=== PATIENT | female | born 1990 | race African-American/Black ===

== ENCOUNTER 2016-08-27 11:10 | Emergency (ER) | payer MEDICAID, OTHER ==
[~2016-08-27] VITALS: Ht 162.6 cm; Wt 120.0 kg
[~2016-08-27 11:10] MED LIST: CHLO.12%30 SSP; CIPR0.3S2 RIGHT EYE; IBUP800T23 PO; PENI500T PO
[2016-08-27 11:13] VITALS: BP 150/87; PULSE 84; RESP 12; TEMP 98.7; O2SAT 98
--- NOTE | 2016-08-27 13:17 | PD ---
HPI Chief Complaint: Cardiac Complaint Time Seen by Provider: 13:11 Travel History International Travel<30 days: No Contact w/Intl Traveler<30days: No Traveled to known affect area: No History of Present Illness HPI 26-year-old female presents to the emergency department for evaluation of intermittent palpitations, chest pain. Patient states that 2 Weeks ago, she had an episode. She felt like her heart was racing and she had chest pain. She states she felt anxious, She Went outside. She States the Symptoms Resolved on Their Own. She States It Also Occurred 3 Days Ago. Patient Denies Any Chest Pain or Palpitations at This Time. She Does Complain of Left Neck Pain. She States She Had the Same Pain Back When She Was . Patient Denies Any Neurological Complaints. Patient has no chronic medical problems and takes no medications. She denies any recent surgeries or travel. Patient denies any hemoptysis. She is not currently on control pills. She denies any history of blood clots. PFSH Past Medical History Hx Anticoagulant Therapy: No Cardiovascular Problems: No Chemotherapy: No Cerebrovascular Accident: No Diabetes: No Diminished Hearing: No Respiratory: No Immunizations Current: Yes ?: Not : 2 Para: 2 Past Surgical History Section: Yes (X2) Gynecologic Surgery: Yes () Hysterectomy: No Social History Alcohol Use: No Tobacco Use: No Substance Use: No Allergies-Medications (Allergen,Severity, Reaction): Coded Allergies: No Known Allergies (Verified , 07/05/16) Reported Meds & Prescriptions Reported Meds & Active Scripts Active No Active Prescriptions or Reported Medications Review of Systems Except as stated in HPI: all other systems reviewed are Neg Physical Exam Narrative GENERAL: Well-developed well-nourished female patient, ambulatory and in no acute distress. Afebrile. SKIN: Warm and dry. HEAD: Normocephalic. Atraumatic. ENT: Mucosa pink and moist. No erythema or exudates. No uvular edema. No uvular , palatal, or tonsillar deviation. Airway patent. Nasal turbinates appear normal without nasal blood, purulent drainage or septal hematoma. Bilateral tympanic membranes are clear without erythema or perforation. EYES: No scleral icterus. No injection or drainage. NECK: Supple, trachea midline. No JVD or lymphadenopathy. CARDIOVASCULAR: Regular rate and rhythm without murmurs, gallops, or rubs. RESPIRATORY: Breath sounds equal bilaterally. No accessory muscle use. Lungs sounds are clear to auscultation. GASTROINTESTINAL: Abdomen soft, non-tender, nondistended. MUSCULOSKELETAL: No cyanosis, or edema. Bilateral upper and lower extremity strength 5/5. All extremities are neurovascularly intact. The patient has tenderness over left trapezius muscle. BACK: Nontender without obvious deformity. No CVA tenderness. NEUROLOGICAL: Awake and alert. Cranial nerves II through XII intact. Motor and sensory grossly within normal limits. Five out of 5 muscle strength in all muscle groups. Normal speech. Data Data Last Documented VS Vital Signs Date Time Temp Pulse Resp B/P Pulse Ox O2 Delivery O2 Flow Rate FiO2 08/27/16 11:13 98.7 84 12 150/87 98 Room Air Orders Electrocardiogram (08/27/16 ) Chest, Single Ap (08/27/16 ) Ed Urine Pregnancytest Poc (08/27/16 13:09) [facility] Medical Decision Making Medical Screen Exam Complete: Yes Emergency Medical Condition: Yes Medical Record Reviewed: Yes Interpretation(s) chest x-ray - CONCLUSION: 1. No acute findings. No focal consolidation or effusion. Differential Diagnosis Anxiety versus chest wall pain versus pneumothorax versus pneumonia versus unlikely ACS versus Narrative Course 26-year-old female presents to the emergency department for evaluations of intermittent palpitations and chest pain. She has none at this time. Symptoms are consistent with anxiety. Urine test, chest x-ray, EKG are ordered and pending. Urine test is negative. Chest x-ray shows no acute findings. EKG shows SR, HR 72, no acute ST changes. Symptoms and physical are consistent with anxiety. Patient is instructed to follow up with her primary care physician for possible holter monitor. She is to return for any acute, worsening of symptoms. Diagnosis Primary Impression: Anxiety Additional Impression: Palpitations Referrals: Primary Care Physician call for appointment Patient Instructions: Anxiety (ED), General Instructions Additional Instructions: Follow up with your primary care physician. Return to the emergency department for any acute, worsening of symptoms. Med/Other Pt SpecificInfo: No Change to Meds Scripts No Active Prescriptions or Reported Meds Disposition: 01 DISCHARGE HOME Condition: Stable Lara Garcia Aug 27, 2016 13:17
--- NOTE | 2016-08-27 14:56 | RADRPT ---
EXAM DATE/TIME: 08/27/2016 13:06 [facility] COMPARISON: No previous studies available for comparison. INDICATIONS : Patient states feels irregular heart beat, headache, feels like she's going to pass out and short of breath. MEDICAL HISTORY : None. SURGICAL HISTORY : None. ENCOUNTER: Initial ACUITY: 3 weeks PAIN SCORE: 0/10 LOCATION: Bilateral chest FINDINGS: A single view of the chest demonstrates the lungs to be symmetrically aerated without evidence of mas s, infiltrate or effusion. The cardiomediastinal contours are unremarkable. Osseous structures are intact. CONCLUSION: 1. No acute findings. No focal consolidation or effusion. Kirk Gunn MD on August 27, 2016 at 14:53 Board Certified Radiologist. This report was verified electronically.
[2016-08-27] MEDS ORDERED: IBUPROFEN 600 MG TAB PO ONE (15:45)
[2016-08-27] MEDS ORDERED: METHOCARBAMOL 500 MG TAB PO ONE (15:45)
--- NOTE | 2016-08-28 11:57 | EKG ---
Date Performed: 08/27/2016 Time Performed: 13:59:02 PTAGE: 26 years EKG: Sinus rhythm NORMAL ECG PREVIOUS TRACING : 01/13/2016 22.11 DOCTOR: Isael Shipley Interpretating Date/Time 08/28/2016 11:55:48
== END 2016-08-27 16:03 | disposition home or self-care (01) ==
LOC: NEPC 11:10
DX: F41.9 Anxiety disorder, unspecified (principal); R00.2 Palpitations
CPT/HCPCS: 71010; 84703; 93005

== ENCOUNTER 2016-09-01 21:20 | Emergency (ER) | payer MEDICAID, OTHER ==
[~2016-09-01] VITALS: Ht 162.6 cm; Wt 118.0 kg
[2016-09-01 21:23] VITALS: BP 155/76; PULSE 70; RESP 16; TEMP 98.3; O2SAT 99
[2016-09-01] MEDS ORDERED: SODIUM CHLOR 0.9% 1000 ML INJ 1,000 ML IV ONE (21:39)
[2016-09-01] MEDS ORDERED: diphenhydrAMINE HCL 50 MG/ML VIAL IVP ONE (21:45)
[2016-09-01] MEDS ORDERED: METOCLOPRAMIDE HCL 10 MG/2 ML VIAL IVP ONE (21:45)
[2016-09-01] MEDS ORDERED: KETOROLAC TROMETHAMINE 30 MG/ML (IVP) VIAL IVP ONE (21:45)
--- NOTE | 2016-09-01 21:45 | PD ---
HPI Chief Complaint: Headache Time Seen by Provider: 21:34 Travel History International Travel<30 days: No Contact w/Intl Traveler<30days: No Traveled to known affect area: No History of Present Illness HPI This is a 26-year-old female with no significant past medical history. She presents for evaluation of a headache. She reports over the past 2 weeks she has had a left frontal headache. She describes it as a pressure and she rates the discomfort as a 6 out of 10. There was no thunderclap pain at onset. He has tried using [id number] NSAIDs but pain persisted which prompted evaluation. She denies blurred vision, visual aura, nausea or vomiting, confusion, focal numbness or tingling or weakness, slurred speech. She denies cough, congestion, rash, sore throat, fevers or chills. It appears that the patient was seen here in August 27 for evaluation of chest pain/palpitations and at that time she had a normal EKG, chest x-ray and a negative urine test. She has no other complaints at this time. PFSH Past Medical History Hx Anticoagulant Therapy: No Cardiovascular Problems: No Chemotherapy: No Cerebrovascular Accident: No Diabetes: No Diminished Hearing: No Respiratory: No Immunizations Current: Yes ?: Not LMP: 07/30/16 : 2 Para: 2 Past Surgical History Section: Yes (X2) Gynecologic Surgery: Yes (C-SEC X 2) Hysterectomy: No Social History Alcohol Use: Yes (WINE- SOCIALLY) Tobacco Use: No Substance Use: No Allergies-Medications (Allergen,Severity, Reaction): Coded Allergies: No Known Allergies (Verified , 09/01/16) Reported Meds & Prescriptions Reported Meds & Active Scripts Active No Active Prescriptions or Reported Medications Review of Systems Except as stated in HPI: all other systems reviewed are Neg Physical Exam Narrative GENERAL: Well-developed well-nourished female in no acute distress SKIN: Warm and dry. HEAD: Atraumatic. Normocephalic. EYES: Pupils equal and round reactive to light extraocular muscles are intact. No scleral icterus. No injection or drainage. ENT: No nasal bleeding or discharge. Mucous membranes pink and moist. There is some tenderness to palpation to the left forehead. There is no rash. NECK: Trachea midline. No JVD. No lymphadenopathy. Neck supple with full range of motion. CARDIOVASCULAR: Regular rate and rhythm. No murmur appreciated. RESPIRATORY: No accessory muscle use. Clear to auscultation. Breath sounds equal bilaterally. MUSCULOSKELETAL: No obvious deformities. No clubbing. No cyanosis. No edema. NEUROLOGICAL: Awake and alert. No obvious cranial nerve deficits. Motor grossly within normal limits. Normal speech. Normal gait, normal finger to nose , heel to arredondo. He has 15. Data Data Last Documented VS Vital Signs Date Time Temp Pulse Resp B/P Pulse Ox O2 Delivery O2 Flow Rate FiO2 09/01/16 22:42 16 09/01/16 21:23 98.3 70 155/76 99 Orders Complete Blood Count With Diff (09/01/16 21:39) Basic Metabolic Panel (Bmp) (09/01/16 21:39) Iv Access Insert/Monitor (09/01/16 21:39) Ketorolac Inj (Toradol Inj) (09/01/16 21:45) Diphenhydramine Inj (Benadryl Inj) (09/01/16 21:45) Metoclopramide Inj (Reglan Inj) (09/01/16 21:45) Sodium Chlor 0.9% 1000 Ml Inj (Ns 1000 M (09/01/16 21:39) Labs Laboratory Tests Test 09/01/16 22:00 White Blood Count 8.8 TH/MM3 Red Blood Count 4.15 MIL/MM3 Hemoglobin 11.9 GM/DL Hematocrit 35.8 % Mean Corpuscular Volume 86.3 FL Mean Corpuscular Hemoglobin 28.7 PG Mean Corpuscular Hemoglobin 33.3 % Concent Red Cell Distribution Width 13.7 % Platelet Count 371 TH/MM3 Mean Platelet Volume 8.4 FL Neutrophils (%) (Auto) 48.9 % Lymphocytes (%) (Auto) 42.4 % Monocytes (%) (Auto) 7.2 % Eosinophils (%) (Auto) 0.7 % Basophils (%) (Auto) 0.8 % Neutrophils # (Auto) 4.3 TH/MM3 Lymphocytes # (Auto) 3.7 TH/MM3 Monocytes # (Auto) 0.6 TH/MM3 Eosinophils # (Auto) 0.1 TH/MM3 Basophils # (Auto) 0.1 TH/MM3 CBC Comment DIFF FINAL Differential Comment Sodium Level 141 MEQ/L Potassium Level 4.3 MEQ/L Chloride Level 106 MEQ/L Carbon Dioxide Level 27.4 MEQ/L Anion Gap 8 MEQ/L Blood Urea Nitrogen 11 MG/DL Creatinine 0.77 MG/DL Estimat Glomerular Filtration 109 ML/MIN Rate Random Glucose 92 MG/DL Calcium Level 9.0 MG/DL MDM Medical Decision Making Medical Screen Exam Complete: Yes Emergency Medical Condition: Yes Medical Record Reviewed: Yes Interpretation(s) CBC, BMP unremarkable Differential Diagnosis Trigeminal Neuralgia, shingles, pseudotumor cerebri, intracranial mass, intracranial hemorrhage, migraine, cluster headache, tension headache, anxiety, dehydration Narrative Course This is a 26-year-old female who has been having a 6 out of 10 left-sided headache which she describes as a pressure, unrelieved with the use of over-the- counter NSAIDs. On examination she does have some actual tenderness to palpation to the left forehead. There is no rash to suggest shingles. She has a normal neurologic examination and she denies any other neurologic symptoms besides headache. Therefore I don't suspect pseudotumor cerebri, intracranial mass or hemorrhage. I suspect a primary headache disorder such as tension headache, migraine without aura. We will treat her with IV fluids, Toradol, Reglan and Benadryl. CBC and BMP have been ordered. 2224: Reassessed, feeling improved, currently eating crackers. 2323: Upon recheck the patient's headache is resolved, her lab work is unremarkable and she is stable for discharge. Diagnosis Primary Impression: Cephalgia Qualified Code: R51 - Nonintractable headache, unspecified chronicity pattern , unspecified headache type Additional Instructions: Follow-up closely with primary care physician. Return for any emergent medical conditions. Med/Other Pt SpecificInfo: No Change to Meds Scripts No Active Prescriptions or Reported Meds Disposition: DISCHARGE HOME Condition: Stable Gavino Blair Sep 01, 2016 21:45
[2016-09-01 22:17] LABS: AUTOMATED NEUTROPHIL # 4.3 TH/MM3 (1.8-7.7); BASOPHIL # 0.1 TH/MM3 (0-0.2); BASOPHIL % 0.8 % (0.0-2.0); EOSINOPHIL # 0.1 TH/MM3 (0-0.4); EOSINOPHIL % 0.7 % (0.0-4.0); HEMATOCRIT 35.8 % (35.0-46.0); HEMO FLAGS DIFF FINAL; LYMPH % 42.4 % (9.0-44.0); LYMPHOCYTE # 3.7 TH/MM3 (1.0-4.8); MEAN CELL VOLUME 86.3 FL (80.0-100.0); MEAN CORPUSCULAR HEMOGLOBIN 28.7 PG (27.0-34.0); MEAN CORPUSCULAR HGB CONC 33.3 % (32.0-36.0); MONO % 7.2 % (0.0-8.0); NEUT % 48.9 % (16.0-70.0); PLATELET COUNT 371 TH/MM3 (150-450); RED BLOOD COUNT 4.15 MIL/MM3 (4.00-5.30); RED CELL DISTRIBUTION WIDTH 13.7 % (11.6-17.2); WHITE BLOOD COUNT 8.8 TH/MM3 (4.0-11.0)
[2016-09-01 22:42] VITALS: RESP 16
[2016-09-01 23:05] LABS: BICARBONATE 27.4 MEQ/L (21.0-32.0); POTASSIUM 4.3 MEQ/L (3.5-5.1)
[2016-09-03] MEDS ORDERED: NAPR500 PO (15:07)
== END 2016-09-02 00:04 | disposition home or self-care (01) ==
LOC: NEPB 21:20
DX: R51 Headache (principal)
CPT/HCPCS: 80048; 85025; 96361; 96374; 96375; 99284; J1200; J1885; J2765; J7030

== ENCOUNTER 2016-09-03 12:18 | Emergency (ER) | payer MEDICAID, OTHER ==
[~2016-09-03] VITALS: Ht 162.6 cm; Wt 118.0 kg
[2016-09-03 12:20] VITALS: BP 185/88; PULSE 74; RESP 12; TEMP 97.5; O2SAT 100
--- NOTE | 2016-09-03 14:11 | PD ---
HPI Chief Complaint: Neuro Symptoms/ Deficits Time Seen by Provider: 14:07 Travel History International Travel<30 days: No Contact w/Intl Traveler<30days: No Traveled to known affect area: No History of Present Illness HPI Patient comes in complaining of a throbbing headache in her left frontal lobe ongoing for approximately a month. Patient has been using [id number]-jxc-zeoqhiw medication with minimal to no relief of her symptoms. Patient reports this is her third visit to the emergency department for the same headache but denies ever having a CAT scan done. Patient states she only had blood work done last that she was here 2 days ago. Patient denies any nausea, vomiting, change in vision, numbness or tingling anywhere, loss change in bowel or bladder, trauma, , chest pain, neck pain, or fevers. PFSH Past Medical History Hx Anticoagulant Therapy: No Cardiovascular Problems: No Chemotherapy: No Cerebrovascular Accident: No Diabetes: No Diminished Hearing: No Respiratory: No Immunizations Current: Yes ?: Not LMP: 09/02/16 : 2 Para: 2 Past Surgical History Section: Yes (X2) Gynecologic Surgery: Yes (C-SEC X 2) Hysterectomy: No Social History Alcohol Use: Yes (WINE- SOCIALLY) Tobacco Use: No Substance Use: No Allergies-Medications (Allergen,Severity, Reaction): Coded Allergies: No Known Allergies (Verified , 09/03/16) Reported Meds & Prescriptions Reported Meds & Active Scripts Active Naprosyn (Naproxen) 500 Mg Tab 500 Mg PO Q12HR PRN Review of Systems Except as stated in HPI: all other systems reviewed are Neg Physical Exam Narrative GENERAL: Well-developed, overly nourished, in no acute distress, and non-ill appearing. SKIN: Warm and dry. HEAD: Atraumatic. Normocephalic. EYES: Pupils equal and round. EOMI. No scleral icterus. No injection or drainage. ENT: No nasal bleeding or discharge. Mucous membranes pink and moist. Tympanic membranes are pearly brown bilaterally. Posterior pharynx is nonerythematous without exudate uvula is midline and rises and falls symmetrically. No tenderness to facial sinuses to palpation. No cervical lymphadenopathy. Face is symmetrical with equal rise and eyebrows and wrinkling the forehead, no deviation of the tongue, and smile symmetrical. NECK: Trachea midline. Supple. No nuclear rigidity. RESPIRATORY: No accessory muscle use. No respiratory distress. MUSCULOSKELETAL: No obvious deformities. No clubbing. No cyanosis. No edema. Full range of motion. She is able to bear full weight and ambulate normally. NEUROLOGICAL: Awake and alert. No obvious cranial nerve deficits. Motor grossly within normal limits. Normal speech. PSYCHIATRIC: Appropriate mood and affect; insight and judgment normal. Data Data Last Documented VS Vital Signs Date Time Temp Pulse Resp B/P Pulse Ox O2 Delivery O2 Flow Rate FiO2 09/03/16 15:02 141/66 09/03/16 12:20 97.5 74 [address] Brain W/O Iv Contrast(Rout) (09/03/16 ) Ondansetron Odt (Zofran Odt) (09/03/16 15:15) Naproxen (Naprosyn) (09/03/16 15:15) MDM Medical Decision Making Medical Screen Exam Complete: Yes Emergency Medical Condition: Yes Differential Diagnosis Headache, sinusitis, tumor, intracranial hemorrhage, other Narrative Course The patients headache appeared nonspecific. Due to patients subjective complaint and presentation, a head CT was performed which was normal and without evidence of blood or mass. The patient looks great, feels better and is in no significant objective discomfort currently. The patient is in no distress and the patients neurological exam is normal, neck is supple and without meningismus. The headache is not consistent with meningitis or infection, nor does it appear consistent with intracranial bleed (SAH etc.), carotid dissection , nor mass by history, examination and evaluation. There is very little clinical evidence to suggest missed hemorrhage on CT and/or sentinel bleed thus an invasive procedure such as a lumbar puncture was not performed. Medication and instructions to rest in a cool dark quite place were discussed with the patient. Also, outpatient follow up was instructed. The patient was instructed to return as needed or if symptoms changed or worsened, fever developed or inability to tolerate fluids. The patient agreed with plan. Patient in no obvious distress upon re-evaluation. All pertinent Radiology result(s) discussed with patient. Patient was asked if they wanted to speak to my attending, which the patient did not wish to do at this time. Any questions/ concerns in reference to patient diagnosis/condition discussed and clarified prior to patient's discharge. Reinforced sheer importance of close follow up with patient's primary physician or primary care clinic. Instructed patient to return to ED immediately, if symptoms return/worsen. Pt showed understanding of above instructions. Further instructions and recommendations were detailed in discharge paperwork. Pt ambulated without difficulty out of ED at discharge. Diagnosis Primary Impression: Cephalgia Qualified Code: R51 - Chronic nonintractable headache, unspecified headache type Additional Impression: Elevated blood pressure reading Referrals: Tung Palencia MD Patient Instructions: General Headache (ED), General Instructions Additional Instructions: Follow-up with your primary care physician and/or neurologist this week for evaluation. Follow-up with your primary care doctor this week for re- evaluation of elevated blood pressures noted here today. Take all medication as prescribed. Return to the emergency department if symptoms get worse. Med/Other Pt SpecificInfo: Prescription(s) given Scripts Naproxen (Naprosyn)500 Mg [id number] Mg PO Q12HR PRN (HEADACHE) #14 TAB Ref 0 Prov:Estevan Bangura MD 09/03/16 Disposition: 01 DISCHARGE HOME Condition: Stable Adrián Gentile Sep 03, 2016 14:11
--- NOTE | 2016-09-03 14:40 | RADRPT ---
EXAM DATE/TIME: 09/03/2016 14:25 [facility] COMPARISON: No previous studies available for comparison. INDICATIONS : Headache with left facial numbness RADIATION DOSE: 41.48 CTDIvol (mGy) MEDICAL HISTORY : None SURGICAL HISTORY : None. ENCOUNTER: Initial ACUITY: 1 day PAIN SCALE: 8/10 LOCATION: cranial TECHNIQUE: Multiple contiguous axial images were obtained of the head. Using automated exposure control and adj ustment of the mA and/or kV according to patient size, radiation dose was kept as low as reasonably a chievable to obtain optimal diagnostic quality images. FINDINGS: CEREBRUM: The ventricles are normal for age. No evidence of midline shift, mass lesion, hemorrhage or acute in farction. No extra-axial fluid collections are seen. POSTERIOR FOSSA: The cerebellum and brainstem are intact. The 4th ventricle is midline. The cerebellopontine angle i s unremarkable. EXTRACRANIAL: The visualized portion of the orbits is intact. SKULL: The calvaria is intact. No evidence of skull fracture. CONCLUSION: No acute disease. Ellyn Ruff MD on September 03, 2016 at 14:38 Board Certified Radiologist. This report was verified electronically.
[2016-09-03 15:02] VITALS: BP 141/66
[2016-09-03] MEDS ORDERED: NAPR500 PO (15:07)
[2016-09-03] MEDS ORDERED: NAPROXEN 500 MG TAB PO ONE (15:15)
[2016-09-03] MEDS ORDERED: ONDANSETRON ODT 4 MG TAB PO ONE (15:15)
== END 2016-09-03 15:21 | disposition home or self-care (01) ==
LOC: NEPB 12:18
DX: R51 Headache (principal); R03.0 Elevated blood-pressure reading, without diagnosis of hypertension
CPT/HCPCS: 70450

== ENCOUNTER 2016-12-09 12:14 | Emergency (ER) | payer MEDICAID, OTHER ==
[~2016-12-09] VITALS: Ht 162.6 cm; Wt 128.0 kg
[~2016-12-09 12:14] MED LIST changes: -CHLO.12%30 SSP; -CIPR0.3S2 RIGHT EYE; -IBUP800T23 PO; +NAPR500 PO; -PENI500T PO
[2016-12-09 12:16] VITALS: BP 123/75; PULSE 76; RESP 20; TEMP 98.7; O2SAT 98
[2016-12-09] MEDS ORDERED: EXCETAB PO (13:52)
--- NOTE | 2016-12-09 14:13 | PD ---
HPI Chief Complaint: Headache Time Seen by Provider: 14:12 Travel History International Travel<30 days: No Contact w/Intl Traveler<30days: No Traveled to known affect area: No History of Present Illness HPI 26-year-old female presents to the emergency Department with complaint of intermittent headaches for the past 3 weeks. Headache. 2 intensity. She has history of headaches and symptoms are similar to past headaches. Headache currently is left and frontal. She says at times it does go all over the head. Reports photophobia. Denies phonophobia. Denies nausea, vomiting. Denies change in vision. Denies focal deficits or weakness. Denies upper respiratory symptoms. Denies fever, chills. Has tried multiple tsgv-yvw-idjsbsw medications with minimal relief of symptoms. She says the medications do help but the headache comes back. No known allergies. No other modifying factors or associated signs and symptoms. PFSH Past Medical History Hx Anticoagulant Therapy: No Cardiovascular Problems: No Chemotherapy: No Cerebrovascular Accident: No Diabetes: No Diminished Hearing: No Respiratory: No Immunizations Current: Yes ?: Not : 2 Para: 2 Past Surgical History Section: Yes (X2) Gynecologic Surgery: Yes (C-SEC X 2) Hysterectomy: No Social History Alcohol Use: Yes (WINE- SOCIALLY) Tobacco Use: No Substance Use: No Allergies-Medications (Allergen,Severity, Reaction): Coded Allergies: No Known Allergies (Verified , 12/09/16) Reported Meds & Prescriptions Reported Meds & Active Scripts Active Ibuprofen 800 Mg Tab 800 Mg PO Q6HR PRN Reported Excedrin Migraine (Nhwbfzl-Hyqeeailbgsld-Jibgswxt) 250-250-65 Mg Tab 2 Tab PO PRN Review of Systems Except as stated in HPI: all other systems reviewed are Neg Physical Exam Narrative GENERAL: Well-nourished, well-developed -[place] female patient, in no acute distress SKIN: Warm and dry. HEAD: Atraumatic. Normocephalic. No facial droop noted. Tongue midline. EYES: Pupils equal and round at 4 mm with brisk reaction. No scleral icterus. No injection or drainage. PERRLA. EOMI. ENT: Mucosa pink and moist. Airway patent. NECK: Trachea midline. No lymphadenopathy. CARDIOVASCULAR: Regular rate and rhythm. No murmur appreciated. RESPIRATORY: No accessory muscle use. Clear to auscultation. Breath sounds equal bilaterally. GASTROINTESTINAL: Abdomen soft, non-tender, nondistended. Hepatic and splenic margins not palpable. Bowel sounds are active 4 quadrants. MUSCULOSKELETAL: No obvious deformities. No clubbing. No cyanosis. No edema. NEUROLOGICAL: Awake and alert. Oriented 3. No obvious cranial nerve deficits. Motor grossly within normal limits. Normal speech. No ataxia. No mid -line drift. Moves all extremities. 5/5 strength to all extremities. PSYCHIATRIC: Appropriate mood and affect; insight and judgment normal. Data Data Last Documented VS Vital Signs Date Time Temp Pulse Resp B/P Pulse Ox O2 Delivery O2 Flow Rate FiO2 12/09/16 12:16 98.7 76 20 123/75 98 Room Air Orders Ketorolac Inj (Toradol Inj) (12/09/16 14:15) Ondansetron Odt (Zofran Odt) (12/09/16 14:15) Diphenhydramine (Benadryl) (12/09/16 14:15) MDM Medical Decision Making Medical Screen Exam Complete: Yes Emergency Medical Condition: Yes Medical Record Reviewed: Yes Differential Diagnosis Cephalgia, migraine headaches, acute headache Narrative Course 26-year-old female with history of headaches with headache 3 weeks. I reviewed her medical chart and she had a CT of the head in August 2016 which was unremarkable. Current headache is similar with past headaches. I do not feel imaging is necessary at this time. Benadryl, Toradol, Zofran ordered. 1606: Patient reports headache 09/03. Reports improvement in symptoms. Ibuprofen prescribed for home. Patient verbalizes understanding and agreement with treatment plan. Patient is medically cleared and stable for discharge. Discussed reasons to return to the emergency department. Instructed patient to follow up with primary care provider. Patient agrees with treatment plan. The patients vital signs are stable and the patient is stable for outpatient follow- up and treatment. Patient discharged home, stable and in no acute distress. Diagnosis Primary Impression: Cephalgia Qualified Code: R51 - Nonintractable headache, unspecified chronicity pattern , unspecified headache type Referrals: Neurologist Primary Care Physician Patient Instructions: Acute Headache (ED), General Headache (ED), General Instructions, Migraine Headache (ED) Departure Forms: Tests/Procedures, Work Release Enter return to work date: Dec 11, 2016 Additional Instructions: Ibuprofen or Tylenol as directed and as needed to reduce headache Get plenty of rest: do not over sleep rest and relax in a dark, quiet room as needed Place an ice pack on the back of her neck to reduce head pain as needed Keep a headache diary of what triggers her headaches and what treatment is most effective Avoid identifiable triggers Avoid smoking, alcohol and caffeine consumption Reduce stress Follow-up with primary care provider within 1-2 days Follow-up with neurology Return immediately to the emergency department with worsening symptoms Med/Other Pt SpecificInfo: Prescription(s) given Scripts Ibuprofen 800 Mg [id number] Mg PO Q6HR PRN (PAIN) #30 TAB Ref 0 Prov:Madison Maria 12/09/16 Disposition: 01 DISCHARGE HOME Condition: Stable Madison Maria Dec 09, 2016 14:13
[2016-12-09] MEDS ORDERED: KETOROLAC TROMETHAMINE 60 MG/2 ML (IM) VIAL IM ONE (14:15)
[2016-12-09] MEDS ORDERED: diphenhydrAMINE HCL 50 MG CAP PO ONE (14:15)
[2016-12-09] MEDS ORDERED: ONDANSETRON ODT 4 MG TAB PO/SL ONE (14:15)
[2016-12-09] MEDS ORDERED: IBUP800T23 PO (14:39)
[2016-12-09 16:21] VITALS: BP 122/75
== END 2016-12-09 16:21 | disposition home or self-care (01) ==
LOC: NEPK 12:14
DX: R51 Headache (principal)
CPT/HCPCS: 96372; 99283; J1885; Q0163

== ENCOUNTER 2017-01-02 23:33 | Emergency (ER) | payer SELFPAY ==
[~2017-01-02] VITALS: Ht 162.6 cm; Wt 110.0 kg
[~2017-01-02 23:33] MED LIST changes: +EXCETAB PO; +IBUP800T23 PO; -NAPR500 PO
[2017-01-02 23:35] VITALS: BP 128/73; PULSE 93; RESP 16; TEMP 98.7; O2SAT 96
[2017-01-03] MEDS ORDERED: CEPH-460 PO (00:42)
[2017-01-03] MEDS ORDERED: DICL50TA3 PO (00:42)
[2017-01-03] MEDS ORDERED: BACT800T5 PO (00:42)
[2017-01-03] MEDS ORDERED: ACETAMINOPHEN/HYDROcodone 325 MG/5 MG TAB PO ONE (00:45)
[2017-01-03] MEDS ORDERED: CEPHALEXIN MONOHYDRATE 500 MG CAP PO ONE (00:45)
[2017-01-03] MEDS ORDERED: SULFAMETHOXAZOLE-TRIMETHOPRIM DS 800-160 MG TAB PO ONE (00:45)
--- NOTE | 2017-01-03 00:47 | PD ---
HPI Chief Complaint: Skin Problem Time Seen by Provider: 00:43 Travel History International Travel<30 days: No Contact w/Intl Traveler<30days: No Traveled to known affect area: No History of Present Illness HPI 26-year-old black female presents emergency Department with complaints of a painful lump in her right axilla over the last few days. It has become increasing painful swollen. She denies any history of abscess in the past. No fever chills. No drainage. There is mild to moderate. Worse with palpation. No alleviating factor. PFSH Past Medical History Medical History: Denies Significant Hx Hx Anticoagulant Therapy: No Cardiovascular Problems: No Chemotherapy: No Cerebrovascular Accident: No Diabetes: No Diminished Hearing: No Respiratory: No Immunizations Current: Yes Tetanus Vaccination: < 5 Years ?: Not LMP: 12/17/16 : 2 Para: 2 Past Surgical History Section: Yes (X2) Gynecologic Surgery: Yes (C-SEC X 2) Hysterectomy: No Social History Alcohol Use: Yes (WINE- SOCIALLY) Tobacco Use: No Substance Use: No Allergies-Medications (Allergen,Severity, Reaction): Coded Allergies: No Known Allergies (Verified , 01/03/17) Reported Meds & Prescriptions Reported Meds & Active Scripts Active Keflex (Cephalexin) 500 Mg Cap 500 Mg PO Q6H Bactrim DS (Sulfamethoxazole-Trimethoprim) 800-160 Mg Tab 1 Tab PO BID Diclofenac Sodium DR (Diclofenac Sodium) 50 Mg Tabdr 50 Mg PO TID Review of Systems Except as stated in HPI: all other systems reviewed are Neg General / Constitutional: No: Fever, Chills Eyes: No: Blurred Vision, Photophobia HENT: No: Headaches, Sore Throat Cardiovascular: No: Chest Pain or Discomfort, Palpitations Respiratory: No: Cough, Shortness of Breath Gastrointestinal: No: Nausea, Vomiting Musculoskeletal: Positive: Pain, No: Limited ROM Skin: Positive Lumps Physical Exam Narrative GENERAL: This is a well-nourished, well-developed patient, in no apparent distress. SKIN: Patient has a fluctuant abscess to the right axilla. This measures 3 x 4 cm. There is tender, erythematous and swollen., ecchymoses or lesions. Warm and dry. HEAD: Atraumatic. Normocephalic. EYES: PERRL, EOMI, no discharge or injection. No scleral icterus. EARS: Clear NOSE: Nasal turbinates appear normal. THROAT: Mucosa pink and moist. Airway patent. NECK: Trachea midline. supple, moves head freely. LUNGS: Clear to auscultation. CV: Regular in rhythm. ABDOMEN: Soft nontender. EXT: No clubbing cyanosis or edema. Data Data Last Documented VS Vital Signs Date Time Temp Pulse Resp B/P Pulse Ox O2 Delivery O2 Flow Rate FiO2 01/02/17 23:35 98.7 93 16 128/73 96 Room Air Orders Acetamin-Hydrocod 325-5 Mg ([place] 5-325 (01/03/17 00:45) Sulfamet-Trimeth Ds 800-160 Mg (Bactrim (01/03/17 00:45) Cephalexin (Keflex) (01/03/17 00:45) MDM Medical Decision Making Medical Screen Exam Complete: Yes Emergency Medical Condition: Yes Medical Record Reviewed: Yes Differential Diagnosis MDM: High Differential diagnoses: Abscess, folliculitis, cellulitis, lymphangitis, abrasion, contact dermatitis Narrative Course This is right axilla abscess A needle aspiration has been performed. Patient's given Keflex 500, Bactrim DS and Lortab 5 a grams by mouth. Procedures Procedure Narrative Needle aspiration right axilla abscess: The skin is prepped and draped in usual sterile fashion using Betadine. One percent lidocaine and 0.5% Marcaine and used to anesthetize the abscess cavity. After adequate anesthesia and 18-gauge needle is used to aspirate the cavity. Approximately 4 cc of purulent pus is expressed. Patient tolerates procedure well. The cavity has been decompressed. Patient tolerated procedure well. Diagnosis Primary Impression: Abscess of right axilla Patient Instructions: Narcotic given in the ED, General Instructions Additional Instructions: Rest. Elevation. keep clean and dry. Warm compresses. Daily wound care with soap, water and Neosporin. Keflex, Bactrim DS and diclofenac. Follow-up with a primary care doctor in one week. Return to the ER for any problems. Med/Other Pt SpecificInfo: Prescription(s) given, Wound Care Scripts Cephalexin (Keflex)500 Mg [id number] Mg PO Q6H #28 CAP Prov:Erica White DO 01/03/17 Sulfamethoxazole-Trimethoprim (Bactrim DS)800-160 Mg Tab1 Tab PO BID #14 TAB Prov:Erica White DO 01/03/[address] 50 Mg Tabdr50 Mg PO TID #21 TAB Prov:Erica White DO 01/03/17 Disposition: 01 DISCHARGE HOME Condition: Stable Kirk Michel January 03, 2017 00:47
[2017-01-03 01:13] VITALS: BP 124/78
== END 2017-01-03 01:17 | disposition home or self-care (01) ==
LOC: NEPD 23:33
DX: L02.411 Cutaneous abscess of right axilla (principal)
CPT/HCPCS: 10160

== ENCOUNTER 2017-03-09 16:53 | Emergency (ER) | payer MEDICAID ==
[~2017-03-09] VITALS: Ht 162.6 cm; Wt 100.0 kg
[~2017-03-09 16:53] MED LIST changes: +BACT800T5 PO; +CEPH-460 PO; +DICL50TA3 PO; -EXCETAB PO; -IBUP800T23 PO
[2017-03-09 16:54] VITALS: BP 134/84; PULSE 72; RESP 20; TEMP 98.5; O2SAT 100
[2017-03-09] MEDS ORDERED: HYDROmorphone HCL PF 1 MG/ML VIAL IVS ONE (19:00)
[2017-03-09] MEDS ORDERED: SODIUM CHLOR 0.9% 1000 ML INJ 1,000 ML IV ONE (19:00)
[2017-03-09] MEDS ORDERED: KETOROLAC TROMETHAMINE 30 MG/ML (IVP) VIAL IVP ONE (19:00)
[2017-03-09] MEDS ORDERED: ONDANSETRON HCL 4 MG/2 ML VIAL IVP ONE (19:00)
--- NOTE | 2017-03-09 19:21 | PD ---
HPI . Left mid back pain Chief Complaint: Flank/Kidney Pain Time Seen by Provider: 18:55 Travel History International Travel<30 days: No Contact w/Intl Traveler<30days: No Traveled to known affect area: No History of Present Illness HPI This patient presents with a chief complaint of left mid back pain. Onset was one year ago. She states that she was seen by her family doctor who treated her with medication. She states that her symptoms did resolve for a while but recurred about a week ago. Pain is exacerbated by movement. She states that [id number] analgesics have given her no relief. She rates her pain 9/ 10. The pain is constant. She does not have a cough or fever. She does not have any urinary tract symptoms such as dysuria, frequency or urgency. PFSH Past Medical History Hx Anticoagulant Therapy: No Cardiovascular Problems: No Chemotherapy: No Cerebrovascular Accident: No Diabetes: No Diminished Hearing: No Respiratory: No Immunizations Current: Yes ?: Not LMP: 03/09/17 : 2 Para: 2 Past Surgical History Section: Yes (X2) Gynecologic Surgery: Yes (C-SEC X 2) Hysterectomy: No Social History Alcohol Use: Yes (WINE- SOCIALLY) Tobacco Use: No Substance Use: No Allergies-Medications (Allergen,Severity, Reaction): Coded Allergies: No Known Allergies (Verified , 01/03/17) Reported Meds & Prescriptions Reported Meds & Active Scripts Active Flexeril (Cyclobenzaprine HCl) 10 Mg Tab 10 Mg PO TID Ultram (Tramadol HCl) 50 Mg Tab 50 Mg PO Q4H PRN Review of Systems Except as stated in HPI: all other systems reviewed are Neg General / Constitutional: No: Fever, Chills Respiratory: No: Shortness of Breath Gastrointestinal: No: Nausea, Vomiting, Diarrhea, Abdominal Pain Genitourinary: Positive: Flank Pain, No: Urgency, Frequency, Dysuria Physical Exam Narrative GENERAL: Awake and alert and in no acute distress. Patient appears very comfortable. SKIN: Warm and dry. HEAD: Atraumatic. Normocephalic. EYES: Pupils equal and round. Extraocular movements are intact. NECK: Trachea midline. Neck is supple. CARDIOVASCULAR: Regular rate and rhythm. RESPIRATORY: No accessory muscle use. MUSCULOSKELETAL: No obvious deformities. No edema. She is tender in the left mid back. NEUROLOGICAL: Awake and alert. No obvious cranial nerve deficits. Motor grossly within normal limits. Normal speech. PSYCHIATRIC: Appropriate mood and affect; insight and judgment normal. Data Data Last Documented VS Vital Signs Date Time Temp Pulse Resp B/P Pulse Ox O2 Delivery O2 Flow Rate FiO2 03/09/17 19:37 16 03/09/17 16:54 98.5 72 134/84 100 Room Air Orders Urinalysis - C+S If Indicated (03/09/17 18:55) Ct Abd/Pel W/O Iv Contrast (03/09/17 18:55) Iv Access Insert/Monitor (03/09/17 18:55) Ketorolac Inj (Toradol Inj) (03/09/17 19:00) Ondansetron Inj (Zofran Inj) (03/09/17 19:00) Sodium Chloride 0.9% Flush (Ns Flush) (03/09/17 19:00) Hydromorphone Pf Inj (Dilaudid Pf Inj) (03/09/17 19:00) Sodium Chlor 0.9% 1000 Ml Inj (Ns 1000 M (03/09/17 19:00) Ed Urine Pregnancytest Poc (03/09/17 18:55) Labs Laboratory Tests Test 03/09/17 19:30 Urine Color YELLOW Urine Turbidity CLEAR Urine pH 5.5 Urine Specific [place] 1.018 Urine Protein NEG mg/dL Urine Glucose (UA) NEG mg/dL Urine Ketones NEG mg/dL Urine Occult Blood SMALL Urine Nitrite NEG Urine Bilirubin NEG Urine Urobilinogen LESS THAN 2.0 MG/DL Urine Leukocyte Esterase NEG Urine RBC 2 /hpf Urine WBC 1 /hpf Urine Squamous Epithelial 1 /hpf Cells Microscopic Urinalysis Comment CULT NOT INDICATED MDM Medical Decision Making Medical Screen Exam Complete: Yes Emergency Medical Condition: Yes Differential Diagnosis Differential diagnosis of flank pain includes but is not limited to kidney stone , pyelonephritis, musculoskeletal pain, PE Narrative Course This patient presents with a chief complaint of left flank pain. Her symptoms are most likely musculoskeletal. She will be evaluated for possible kidney stone or pyelonephritis. She will be treated with IV fluids and IV analgesics. UPT neg. UA>>small occult blood, 2 RBCs Last Impressions Abdomen/Pelvis CT 03/09/17 [id number] Signed Impressions: Service Date/Time: Thursday, March 09, 2017 20:14 - CONCLUSION: Tiny 3-4 mm left UVJ stone. K. Russ Palacios MD Diagnosis Primary Impression: Left flank pain Additional Impression: Kidney stone on left side Referrals: Garry Pollack MD Patient Instructions: Flank Pain (ED), General Instructions, Kidney Stones (DC) Additional Instructions: See your doctor for ongoing treatment as needed. Med/Other Pt SpecificInfo: Prescription(s) given Scripts Promethazine (Phenergan)25 Mg [id number] Mg PO Q6H PRN (NAUSEA OR VOMITING) #12 TAB Ref 0 Prov:Barbie Barahona MD 03/09/17 Tamsulosin (Flomax)0.4 Mg Cap0.4 Mg PO HS #10 CAP Ref 0 Prov:Barbie Barahona MD 03/09/17 Oxycodone-Acetaminophen (Percocet)5-325 mg Tab1 Tab PO Q4H PRN (PAIN) #12 TAB Ref 0 Prov:Barbie Barahona MD 03/09/17 Disposition: 01 DISCHARGE HOME Condition: Stable Barbie Barahona MD Mar 09, 2017 19:21
[2017-03-09] MEDS: SODIUM CHLORIDE 0.9% FLUSH 10 ML FLUSH IVF PRN ×2 (19:32→21:23)
[2017-03-09 19:38] LABS: BLOOD, URINE SMALL (NEG); GLUCOSE,URINE NEG (NEG); KETONE, URINE NEG (NEG); NITRITE,URINE NEG (NEG); PH, URINE 5.5 (5.0-8.5); SQUAMOUS EPITHELIAL CELL URINE 1 /hpf (0-5); URINE COLOR YELLOW (YELLW/STRAW)
[2017-03-09 19:39] LABS: COMMENT (UR) CULT NOT INDICATED; CULTURE IF INDICATED CULT NOT INDICATED
[2017-03-09] MEDS ORDERED: CYCL1TAB29 PO (19:43)
[2017-03-09] MEDS ORDERED: ULTR50TA5 PO (19:43)
--- NOTE | 2017-03-09 20:38 | RADRPT ---
EXAM DATE/TIME: 03/09/2017 20:14 [facility] COMPARISON: No previous studies available for comparison. INDICATIONS : Left flank pain for one week. ORAL CONTRAST: No oral contrast ingested. RADIATION DOSE: 32.34 CTDIvol (mGy) ; Patient body habitus MEDICAL HISTORY : None SURGICAL HISTORY : None. ENCOUNTER: Initial ACUITY: 1 week PAIN SCALE: 7/10 LOCATION: Left flank TECHNIQUE: Volumetric scanning of the abdomen and pelvis was performed. Using automated exposure control and ad justment of the mA and/or kV according to patient size, radiation dose was kept as low as reasonably achievable to obtain optimal diagnostic quality images. DICOM format image data is available electro nically for review and comparison. FINDINGS: CT Abdomen: The liver, spleen, pancreas, kidneys, adrenals are unremarkable. There is no evidence for any appreciable pathological adenopathy, free fluid, or bowel obstruction. CT pelvis: There is no evidence for mass, abscess formation, or any significant adenopathy within the pelvis. There is a tiny 3-4 mm left UVJ stone without any significant hydronephrosis. CONCLUSION: Tiny 3-4 mm left UVJ stone. Angie Palacios MD on March 09, 2017 at 20:34 Board Certified Radiologist. This report was verified electronically.
[2017-03-09] MEDS ORDERED: PERC5TAB12 PO (20:56)
[2017-03-09] MEDS ORDERED: PROM25TA10 PO (20:56)
[2017-03-09] MEDS ORDERED: TAMS5CAP PO (20:56)
[2017-03-09] MEDS ORDERED: diphenhydrAMINE HCL 50 MG/ML VIAL IV PUSH ONE (21:00)
== END 2017-03-09 21:35 | disposition home or self-care (01) ==
LOC: NEPD 16:53
DX: R10.9 Unspecified abdominal pain (principal); N20.0 Calculus of kidney; Z79.899 Other long term (current) drug therapy
CPT/HCPCS: 74176; 81001; 84703; 96374; 96375; 99285; J1170; J1200; J1885; J2405; J7030

== ENCOUNTER 2017-03-18 19:20 | Emergency (ER) | payer MEDICAID ==
[~2017-03-18] VITALS: Ht 162.6 cm; Wt 104.0 kg
[~2017-03-18 19:20] MED LIST changes: -BACT800T5 PO; -CEPH-460 PO; -DICL50TA3 PO; +PERC5TAB12 PO; +PROM25TA10 PO; +TAMS5CAP PO
[2017-03-18 19:22] VITALS: BP 135/91; PULSE 92; RESP 16; TEMP 98.9; O2SAT 98
[2017-03-18] MEDS ORDERED: SODIUM CHLOR 0.9% 1000 ML INJ 1,000 ML IV ONE (21:49)
--- NOTE | 2017-03-18 21:53 | PD ---
HPI Chief Complaint: Complaint Time Seen by Provider: 21:40 Travel History International Travel<30 days: No Contact w/Intl Traveler<30days: No Traveled to known affect area: No History of Present Illness HPI This is a 27-year-old female presents for evaluation of left flank pain and dysuria. The patient was seen here on March 09 for evaluation and found to have a 3-4 mm left UVJ stone. She was discharged with prescription for oxycodone, Flomax and Phenergan. Since then the pain has persisted which prompted evaluation. The pain is a sharp pain which is constant. She endorses some nausea. She endorses dysuria. Denies vomiting, fevers or chills, diarrhea or constipation, vaginal bleeding or discharge. Last menstrual. Was one week ago. No other complaints at this time. PFSH Past Medical History Hx Anticoagulant Therapy: No Cardiovascular Problems: No Chemotherapy: No Cerebrovascular Accident: No Diabetes: No Diminished Hearing: No Respiratory: No Immunizations Current: Yes ?: Not LMP: 03/14/17 : 2 Para: 2 Past Surgical History Section: Yes (X2) Gynecologic Surgery: Yes (C-SEC X 2) Hysterectomy: No Social History Alcohol Use: No Tobacco Use: No Substance Use: No Allergies-Medications (Allergen,Severity, Reaction): Coded Allergies: No Known Allergies (Verified , 03/18/17) Reported Meds & Prescriptions Reported Meds & Active Scripts Active Flomax (Tamsulosin HCl) 0.4 Mg Cap 0.4 Mg PO HS Percocet (Oxycodone-Acetaminophen) 5-325 mg Tab 1 Tab PO Q4H PRN Review of Systems Except as stated in HPI: all other systems reviewed are Neg Physical Exam Narrative GENERAL: Well-developed well-nourished female in no acute distress SKIN: Warm and dry. HEAD: Atraumatic. Normocephalic. EYES: Pupils equal and round. No scleral icterus. No injection or drainage. ENT: No nasal bleeding or discharge. Mucous membranes pink and moist. NECK: Trachea midline. No JVD. CARDIOVASCULAR: Regular rate and rhythm. No murmur appreciated. RESPIRATORY: No accessory muscle use. Clear to auscultation. Breath sounds equal bilaterally. GASTROINTESTINAL: Abdomen soft, non-tender, nondistended. Hepatic and splenic margins not palpable. MUSCULOSKELETAL: No obvious deformities. No edema. Mild left CVA tenderness. NEUROLOGICAL: Awake and alert. No obvious cranial nerve deficits. Motor grossly within normal limits. Normal speech. PSYCHIATRIC: Appropriate mood and affect; insight and judgment normal. Data Data Last Documented VS Vital Signs Date Time Temp Pulse Resp B/P Pulse Ox O2 Delivery O2 Flow Rate FiO2 03/18/17 19:22 98.9 92 16 135/91 98 Room Air Orders Complete Blood Count With Diff (03/18/17 21:49) Comprehensive Metabolic Panel (03/18/17 21:49) Urinalysis - C+S If Indicated (03/18/17 21:49) Ed Urine Pregnancytest Poc (03/18/17 21:49) Ct Abd/Pel W/O Iv Contrast (03/18/17 21:49) Ecg Monitoring (03/18/17 21:49) Iv Access Insert/Monitor (03/18/17 21:49) Ketorolac Inj (Toradol Inj) (03/18/17 22:00) Morphine Inj (Morphine Inj) (03/18/17 22:00) Ondansetron Inj (Zofran Inj) (03/18/17 22:00) Sodium Chloride 0.9% Flush (Ns Flush) (03/18/17 22:00) Sodium Chlor 0.9% 1000 Ml Inj (Ns 1000 M (03/18/17 21:49) Labs Laboratory Tests Test 03/18/17 03/18/17 03/18/17 22:05 22:40 23:58 White Blood Count 8.6 TH/MM3 Red Blood Count 4.19 MIL/MM3 Hemoglobin 12.2 GM/DL Hematocrit 37.2 % Mean Corpuscular Volume 88.7 FL Mean Corpuscular Hemoglobin 29.2 PG Mean Corpuscular Hemoglobin 32.9 % Concent Red Cell Distribution Width 14.0 % Platelet Count 375 TH/MM3 Mean Platelet Volume 7.7 FL Neutrophils (%) (Auto) 53.9 % Lymphocytes (%) (Auto) 37.6 % Monocytes (%) (Auto) 7.0 % Eosinophils (%) (Auto) 0.7 % Basophils (%) (Auto) 0.8 % Neutrophils # (Auto) 4.6 TH/MM3 Lymphocytes # (Auto) 3.2 TH/MM3 Monocytes # (Auto) 0.6 TH/MM3 Eosinophils # (Auto) 0.1 TH/MM3 Basophils # (Auto) 0.1 TH/MM3 CBC Comment DIFF FINAL Differential Comment Urine Color YELLOW Urine Turbidity CLEAR Urine pH 7.0 Urine Specific [place] 1.012 Urine Protein NEG mg/dL Urine Glucose (UA) NEG mg/dL Urine Ketones NEG mg/dL Urine Occult Blood NEG Urine Nitrite NEG Urine Bilirubin NEG Urine Urobilinogen 2.0 MG/DL Urine Leukocyte Esterase NEG Urine RBC LESS THAN 1 /hpf Urine WBC LESS THAN 1 /hpf Urine Squamous Epithelial 1 /hpf Cells Microscopic Urinalysis Comment CULT NOT INDICATED Sodium Level 142 MEQ/L Potassium Level 4.1 MEQ/L Chloride Level 106 MEQ/L Carbon Dioxide Level 28.2 MEQ/L Anion Gap 8 MEQ/L Blood Urea Nitrogen 6 MG/DL Creatinine 0.60 MG/DL Estimat Glomerular Filtration 144 ML/MIN Rate Random Glucose 113 MG/DL Calcium Level 9.1 MG/DL Total Bilirubin 0.2 MG/DL Aspartate Amino Transf 12 U/L (AST/SGOT) Alanine Aminotransferase 21 U/L (ALT/SGPT) Alkaline Phosphatase 79 U/L Total Protein 7.3 GM/DL Albumin 3.4 GM/DL [facility] Medical Decision Making Medical Screen Exam Complete: Yes Emergency Medical Condition: Yes Medical Record Reviewed: Yes Differential Diagnosis Hydronephrosis, ureteral stone, pyelonephritis, muscle spasm Narrative Course 27-year-old female who was recently seen here and diagnosed with a left ureteral stone, presents with persistent and worsening left flank pain as well as dysuria. Plan is for basic lab work, urinalysis, CT abdomen and pelvis. 2300: At the end of my shift this patient was signed out to Dr. Rueda pending labwork/imaging. Gavino Blair Mar 18, 2017 21:53
[2017-03-18] MEDS ORDERED: ONDANSETRON HCL 4 MG/2 ML VIAL IVP ONE (22:00)
[2017-03-18] MEDS ORDERED: SODIUM CHLORIDE 0.9% FLUSH 10 ML FLUSH IVF PRN (22:00)
[2017-03-18] MEDS ORDERED: KETOROLAC TROMETHAMINE 30 MG/ML (IVP) VIAL IVP ONE (22:00)
[2017-03-18] MEDS ORDERED: MORPHINE SULFATE 4 MG/ML INJ IV ONE (22:00)
[2017-03-18 23:01] LABS: AUTOMATED NEUTROPHIL # 4.6 TH/MM3 (1.8-7.7); BASOPHIL # 0.1 TH/MM3 (0-0.2); BASOPHIL % 0.8 % (0.0-2.0); EOSINOPHIL # 0.1 TH/MM3 (0-0.4); EOSINOPHIL % 0.7 % (0.0-4.0); HEMATOCRIT 37.2 % (35.0-46.0); HEMO FLAGS DIFF FINAL; LYMPH % 37.6 % (9.0-44.0); LYMPHOCYTE # 3.2 TH/MM3 (1.0-4.8); MEAN CELL VOLUME 88.7 FL (80.0-100.0); MEAN CORPUSCULAR HEMOGLOBIN 29.2 PG (27.0-34.0); MEAN CORPUSCULAR HGB CONC 32.9 % (32.0-36.0); NEUT % 53.9 % (16.0-70.0); PLATELET COUNT 375 TH/MM3 (150-450); RED BLOOD COUNT 4.19 MIL/MM3 (4.00-5.30); WHITE BLOOD COUNT 8.6 TH/MM3 (4.0-11.0)
--- NOTE | 2017-03-18 23:04 | PD ---
Data Data Last Documented VS Vital Signs Date Time Temp Pulse Resp B/P Pulse Ox O2 Delivery O2 Flow Rate FiO2 03/18/17 19:22 98.9 92 16 135/91 98 Room Air Orders Complete Blood Count With Diff (03/18/17 21:49) Comprehensive Metabolic Panel (03/18/17 21:49) Urinalysis - C+S If Indicated (03/18/17 21:49) Ed Urine Pregnancytest Poc (03/18/17 21:49) Ct Abd/Pel W/O Iv Contrast (03/18/17 21:49) Ecg Monitoring (03/18/17 21:49) Iv Access Insert/Monitor (03/18/17 21:49) Ketorolac Inj (Toradol Inj) (03/18/17 22:00) Morphine Inj (Morphine Inj) (03/18/17 22:00) Ondansetron Inj (Zofran Inj) (03/18/17 22:00) Sodium Chloride 0.9% Flush (Ns Flush) (03/18/17 22:00) Sodium Chlor 0.9% 1000 Ml Inj (Ns 1000 M (03/18/17 21:49) Labs Laboratory Tests Test 03/18/17 03/18/17 03/18/17 22:05 22:40 23:58 White Blood Count 8.6 TH/MM3 Red Blood Count 4.19 MIL/MM3 Hemoglobin 12.2 GM/DL Hematocrit 37.2 % Mean Corpuscular Volume 88.7 FL Mean Corpuscular Hemoglobin 29.2 PG Mean Corpuscular Hemoglobin 32.9 % Concent Red Cell Distribution Width 14.0 % Platelet Count 375 TH/MM3 Mean Platelet Volume 7.7 FL Neutrophils (%) (Auto) 53.9 % Lymphocytes (%) (Auto) 37.6 % Monocytes (%) (Auto) 7.0 % Eosinophils (%) (Auto) 0.7 % Basophils (%) (Auto) 0.8 % Neutrophils # (Auto) 4.6 TH/MM3 Lymphocytes # (Auto) 3.2 TH/MM3 Monocytes # (Auto) 0.6 TH/MM3 Eosinophils # (Auto) 0.1 TH/MM3 Basophils # (Auto) 0.1 TH/MM3 CBC Comment DIFF FINAL Differential Comment Urine Color YELLOW Urine Turbidity CLEAR Urine pH 7.0 Urine Specific [place] 1.012 Urine Protein NEG mg/dL Urine Glucose (UA) NEG mg/dL Urine Ketones NEG mg/dL Urine Occult Blood NEG Urine Nitrite NEG Urine Bilirubin NEG Urine Urobilinogen 2.0 MG/DL Urine Leukocyte Esterase NEG Urine RBC LESS THAN 1 /hpf Urine WBC LESS THAN 1 /hpf Urine Squamous Epithelial 1 /hpf Cells Microscopic Urinalysis Comment CULT NOT INDICATED Sodium Level 142 MEQ/L Potassium Level 4.1 MEQ/L Chloride Level 106 MEQ/L Carbon Dioxide Level 28.2 MEQ/L Anion Gap 8 MEQ/L Blood Urea Nitrogen 6 MG/DL Creatinine 0.60 MG/DL Estimat Glomerular Filtration 144 ML/MIN Rate Random Glucose 113 MG/DL Calcium Level 9.1 MG/DL Total Bilirubin 0.2 MG/DL Aspartate Amino Transf 12 U/L (AST/SGOT) Alanine Aminotransferase 21 U/L (ALT/SGPT) Alkaline Phosphatase 79 U/L Total Protein 7.3 GM/DL Albumin 3.4 GM/DL [facility] Medical Record Reviewed: Yes Supervised Visit with ТАТЬЯНА: No Narrative Course During the course of the patients emergency department visit, the patients history, examination, and differential diagnosis were reviewed with the patient. The patient had IV access obtained and blood work sent for analysis. The patient was placed on a glost kiln placer with oximetry and blood pressure monitoring. The patient was initially seen by Gavino, the physician clinic assistant. Please see his complete history and physical. The patient presents to the emergency department with flank pain and dysuria with a recent diagnosis of a kidney stone. The patient was initially provided normal saline IV fluids, morphine for pain, Zofran for nausea, Toradol 30 mg for pain. The patients laboratory studies were reviewed and remarkable for a CBC that is within normal limits. CMP is remarkable for BUN of 6, glucose 113, AST 12, urinalysis within normal limits. Radiology studies were reviewed and remarkable for a CT scan of the abdomen and pelvis that shows no acute findings identified in the abdomen or pelvis, no renal stones or signs of urinary obstruction are identified. There is a 3 mm density in the inferior left pelvis that the reading radiologist believes is related to a phlebolith and not a ureteral stone. The patient is resting comfortably and feels better, is alert and in no distress. The patients results and examination findings were discussed with the patient. The repeat examination is unremarkable and benign. The history, exam, diagnostic testing, and current condition do not suggest any significant pathology to warrant further testing, continued ED treatment, admission, or surgical evaluation at this point. The vital signs have been stable. The patient does not have uncontrollable pain, intractable vomiting, or other significant symptoms. The patient's condition is stable and appropriate for discharge. The patient will pursue further outpatient evaluation with a primary care physician or other designated or consulting physician as indicated in the discharge instructions. The patient expressed understanding and was agreeable with this plan. Diagnosis Primary Impression: Left flank pain Additional Impression: Dysuria Referrals: Primary Care Physician Patient Instructions: Dysuria (ED), Flank Pain (ED), General Instructions Med/Other Pt SpecificInfo: No Change to Meds Disposition: 01 DISCHARGE HOME Condition: Stable Gisel Rueda MD Mar 18, 2017 23:04
[2017-03-18 23:08] LABS: BLOOD, URINE NEG (NEG); GLUCOSE,URINE NEG (NEG); KETONE, URINE NEG (NEG); NITRITE,URINE NEG (NEG); SQUAMOUS EPITHELIAL CELL URINE 1 /hpf (0-5); URINE COLOR YELLOW (YELLW/STRAW)
--- NOTE | 2017-03-18 23:08 | RADRPT ---
EXAM DATE/TIME: 03/18/2017 22:45 [facility] COMPARISON: CT ABDOMEN & PELVIS W/O CONTRAST, March 09, 2017, 20:14. INDICATIONS : left flank pain. ORAL CONTRAST: No oral contrast ingested. RADIATION DOSE: 32.11 CTDIvol (mGy) MEDICAL HISTORY : Renal calculi. SURGICAL HISTORY : section. ENCOUNTER: Initial ACUITY: 1 day PAIN SCALE: 8/10 LOCATION: Left flank TECHNIQUE: Volumetric scanning of the abdomen and pelvis was performed. Using automated exposure control and ad justment of the mA and/or kV according to patient size, radiation dose was kept as low as reasonably achievable to obtain optimal diagnostic quality images. DICOM format image data is available electro nically for review and comparison. FINDINGS: LOWER LUNGS: The visualized lower lungs are clear. LIVER: Homogeneous density without lesion. There is no dilation of the biliary tree. No calcified gallston es. SPLEEN: Normal size without lesion. PANCREAS: Within normal limits. KIDNEYS: Normal in size and shape. There is no mass, stone, or hydronephrosis. There is a punctate calcificat ion in the left pelvis that likely represents a phlebolith and does not appear to be within the left ureter. ADRENAL GLANDS: Within normal limits. VASCULAR: There is no aortic aneurysm. BOWEL/MESENTERY: The stomach, small bowel, and colon demonstrate no acute abnormality. There is no free intraperitone al air or fluid. The appendix is normal. ABDOMINAL WALL: Within normal limits. RETROPERITONEUM: There is no lymphadenopathy. BLADDER: No wall thickening or mass. REPRODUCTIVE: Within normal limits. INGUINAL: There is no lymphadenopathy or hernia. MUSCULOSKELETAL: Within normal limits for patient age. CONCLUSION: 1. No acute finding is identified within the abdomen or pelvis. No renal stones or signs of urinary o bstruction are identified. 2. There is a 3 mm density in the inferior left pelvis that I believe represents a phlebolith and not a ureteral stone. Martin Lane MD on March 18, 2017 at 23:02 Board Certified Radiologist. This report was verified electronically.
[2017-03-18 23:11] LABS: COMMENT (UR) CULT NOT INDICATED; CULTURE IF INDICATED CULT NOT INDICATED
[2017-03-19 00:35] LABS: ALKALINE PHOSPHATASE 79 U/L (45-117); AST (GOT) 12 U/L (15-37); BLOOD UREA NITROGEN 6 MG/DL (7-18); GLOMERULAR FILTRATION RATE 144 ML/MIN (>89)
[2017-03-19 00:36] LABS: ALT (GPT) 21 U/L (10-53); ANION GAP 8 MEQ/L (5-15); BICARBONATE 28.2 MEQ/L (21.0-32.0); CHLORIDE 106 MEQ/L (98-107); POTASSIUM 4.1 MEQ/L (3.5-5.1); SODIUM (NA) 142 MEQ/L (136-145); TOTAL BILIRUBIN ADULT 0.2 MG/DL (0.2-1.0)
== END 2017-03-19 02:11 | disposition home or self-care (01) ==
LOC: NEPE 19:20
DX: R10.9 Unspecified abdominal pain (principal); R30.0 Dysuria; Z79.899 Other long term (current) drug therapy
CPT/HCPCS: 74176; 80053; 81001; 84703; 85025; 96374; 96375; 99285; J1885; J2270; J2405; J7030

== ENCOUNTER 2017-05-20 22:56 | Emergency (ER) | payer MEDICAID ==
[~2017-05-20] VITALS: Ht 162.6 cm; Wt 127.0 kg
[~2017-05-20 22:56] MED LIST changes: -PROM25TA10 PO
[2017-05-20 22:59] VITALS: BP 138/86; PULSE 86; RESP 16; TEMP 97.8; O2SAT 100
[2017-05-21] MEDS ORDERED: ONDANSETRON HCL 4 MG/2 ML VIAL IV ONE (00:45)
[2017-05-21] MEDS ORDERED: SODIUM CHLOR 0.9% 1000 ML INJ 1,000 ML IV ONE (00:45)
[2017-05-21 00:47] VITALS: RESP 20; O2SAT 97
[2017-05-21 00:59] LABS: BACTERIA, URINE RARE /hpf; BLOOD, URINE NEG (NEG); CALCIUM OXALATE CRYSTALS,URINE MANY /hpf; COMMENT (UR) CULT NOT INDICATED; CULTURE IF INDICATED CULT NOT INDICATED; GLUCOSE,URINE NEG (NEG); KETONE, URINE NEG (NEG); MUCUS URINE FEW /lpf (OCC); NITRITE,URINE NEG (NEG); PH, URINE 5.5 (5.0-8.5); SQUAMOUS EPITHELIAL CELL URINE 8 /hpf (0-5); URINE COLOR YELLOW (YELLW/STRAW)
[2017-05-21 01:42] LABS: ALKALINE PHOSPHATASE 82 U/L (45-117); TOTAL BILIRUBIN ADULT 0.4 MG/DL (0.2-1.0)
[2017-05-21 01:45] LABS: ALT (GPT) 19 U/L (10-53); ANION GAP 7 MEQ/L (5-15); AST (GOT) 34 U/L (15-37); BICARBONATE 24.2 MEQ/L (21.0-32.0); BLOOD UREA NITROGEN 9 MG/DL (7-18); CHLORIDE 105 MEQ/L (98-107); GLOMERULAR FILTRATION RATE 131 ML/MIN (>89); SODIUM (NA) 136 MEQ/L (136-145)
[2017-05-21 01:46] LABS: POTASSIUM 4.2 MEQ/L (3.5-5.1)
--- NOTE | 2017-05-21 01:49 | PD ---
HPI Chief Complaint: Abdominal Pain Time Seen by Provider: 00:20 Travel History International Travel<30 days: No Contact w/Intl Traveler<30days: No Traveled to known affect area: No History of Present Illness HPI The patient is a 27 year old female who presents to the [facility] emergency department with a history of midepigastric abdominal pain that radiates to the left upper quadrant that began 2 weeks. It is constant. It is getting gradually worse. It is associated with vomiting, no nausea. It is a sharp pain. She has had worsening reflux and heartburn. Aleve and advil did not help with the pain. She denies any diarrhea, vaginal discharge, or vaginal bleeding. The patient reports a recent history of having intermittent back pains. She reports that she was seen in the emergency department and initially diagnosed with a kidney stone, however when she had recurrent pain she had additional imaging done that showed that she had no kidney stone. The patient reports confusion regarding whether or not she actually ever had one. The patient denies having any dysuria, hematuria, urinary urgency, or frequency. On review of systems, the patient denies having any recent fevers, cough, congestion, neck pain, chest pain, shortness of breath, or neurologic symptoms. LMP: last week. PFSH Past Medical History Narrative Medical The patient's past medical history is significant for having a possible kidney stone. Hx Anticoagulant Therapy: No Cardiovascular Problems: No Chemotherapy: No Cerebrovascular Accident: No Diabetes: No Diminished Hearing: No Respiratory: No Immunizations Current: Yes Tetanus Vaccination: < 5 Years Influenza Vaccination: Yes ?: Not LMP: 05/13/17 : 2 Para: 2 Past Surgical History Narrative Surgical The patient's past surgical history is significant for 2 c-sections. Section: Yes (X2) Gynecologic Surgery: Yes (C-SEC X 2) Hysterectomy: No Social History Alcohol Use: No Tobacco Use: No Substance Use: No Allergies-Medications (Allergen,Severity, Reaction): Coded Allergies: No Known Allergies (Verified , 05/21/17) Reported Meds & Prescriptions Reported Meds & Active Scripts Active Review of Systems Except as stated in HPI: all other systems reviewed are Neg General / Constitutional: No: Fever Eyes: No: Visual changes HENT: No: Headaches Cardiovascular: No: Chest Pain or Discomfort Respiratory: No: Shortness of Breath Gastrointestinal: Positive: Nausea, Abdominal Pain, Indigestion, No: Vomiting, Diarrhea Genitourinary: No: Dysuria Musculoskeletal: No: Pain Skin: No Rash Neurologic: No: Weakness Psychiatric: No: Depression Endocrine: No: Polydipsia Hematologic/Lymphatic: No: Easy Bruising Physical Exam Narrative General: The patient is a well-developed well-nourished female in no acute distress who is uncomfortable appearing on my arrival to the room, laying on her left side. Head and Neck exam: Head is normocephalic atraumatic. Eyes: EOMI, pupils are equal round and reactive to light. Nose: Midline septum with pink mucous membranes Mouth: Dentition unremarkable. Moist mucus membranes. Posterior oropharynx is not erythematous. No tonsillar hypertrophy. Uvula midline. Airway patent. Neck: No palpable lymphadenopathy. No nuchal rigidity. No thyromegaly. Cardiovascular: Regular rate and rhythm without murmurs, gallops, or rubs. Lungs: Clear to auscultation bilaterally. No wheezes, rhonchi, or rales. Abdomen: Soft, with reported tenderness on palpation along the midepigastric area and left upper quadrant of the abdomen. No guarding, rebound, or rigidity. Normal bowel sounds are audible. No tenderness on palpation of McBurney's point. Negative Francis sign. Extremities: No clubbing, cyanosis, or edema. 2+ pulses in all 4 extremities. Back: No spinous process tenderness to palpation. Left-sided CVA tenderness on palpation. Neurologic Exam: Grossly nonfocal. Skin Exam: No rash noted. Intact skin that is warm and dry. Data Data Last Documented VS Vital Signs Date Time Temp Pulse Resp B/P (MAP) Pulse Ox O2 Delivery O2 Flow Rate FiO2 05/21/17 03:44 18 05/21/17 00:47 97 Room Air 05/20/17 22:59 97.8 86 Orders Orders Urinalysis - C+S If Indicated (05/20/17 23:43) Ed Urine Pregnancytest Poc (05/20/17 23:43) Complete Blood Count With Diff (05/21/17 00:39) Comprehensive Metabolic Panel (05/21/17 00:39) C-Reactive Protein (Crp) (05/21/17 00:39) Lipase (05/21/17 00:39) Iv Access Insert/Monitor (05/21/17 00:39) Ecg Monitoring (05/21/17 00:39) Oximetry (05/21/17 00:39) Sodium Chlor 0.9% 1000 Ml Inj (Ns 1000 M (05/21/17 00:45) Ondansetron Inj (Zofran Inj) (05/21/17 00:45) Ct Abd/Pel W Iv Contrast(Rout) (05/21/17 02:12) Ketorolac Inj (Toradol Inj) (05/21/17 02:15) Iohexol 350 Inj (Omnipaque 350 Inj) (05/21/17 02:50) Labs Laboratory Tests Test 05/21/17 00:45 05/21/17 01:20 05/21/17 02:30 Urine Color YELLOW Urine Turbidity HAZY Urine pH 5.5 Urine Specific [place] 1.031 Urine Protein TRACE mg/dL Urine Glucose (UA) NEG mg/dL Urine Ketones NEG mg/dL Urine Occult Blood NEG Urine Nitrite NEG Urine Bilirubin NEG Urine Urobilinogen 2.0 MG/DL Urine Leukocyte Esterase TRACE Urine RBC 11 /hpf Urine WBC LESS THAN 1 /hpf Urine Squamous Epithelial Cells 8 /hpf Urine Calcium Oxalate Crystals MANY /hpf Urine Amorphous Sediment RARE Urine Bacteria RARE /hpf Urine Mucus FEW /lpf Microscopic Urinalysis Comment CULT NOT INDICATED Blood Urea Nitrogen 9 MG/DL Creatinine 0.65 MG/DL Random Glucose 113 MG/DL Total Protein 8.0 GM/DL Albumin 3.4 GM/DL Calcium Level 9.0 MG/DL Alkaline Phosphatase 82 U/L Aspartate Amino Transf (AST/SGOT) 34 U/L Alanine Aminotransferase (ALT/SGPT) 19 U/L Total Bilirubin 0.4 MG/DL Sodium Level 136 MEQ/L Potassium Level 4.2 MEQ/L Chloride Level 105 MEQ/L Carbon Dioxide Level 24.2 MEQ/L Anion Gap 7 MEQ/L Estimat Glomerular Filtration Rate 131 ML/MIN C-Reactive Protein 1.44 MG/DL Lipase 184 U/L White Blood Count 9.4 TH/MM3 Red Blood Count 3.79 MIL/MM3 Hemoglobin 10.7 GM/DL Hematocrit 32.7 % Mean Corpuscular Volume 86.3 FL Mean Corpuscular Hemoglobin 28.1 PG Mean Corpuscular Hemoglobin Concent 32.6 % Red Cell Distribution Width 13.5 % Platelet Count 310 TH/MM3 Mean Platelet Volume 8.1 FL Neutrophils (%) (Auto) 57.7 % Lymphocytes (%) (Auto) 34.5 % Monocytes (%) (Auto) 6.6 % Eosinophils (%) (Auto) 0.5 % Basophils (%) (Auto) 0.7 % Neutrophils # (Auto) 5.5 TH/MM3 Lymphocytes # (Auto) 3.3 TH/MM3 Monocytes # (Auto) 0.6 TH/MM3 Eosinophils # (Auto) 0.0 TH/MM3 Basophils # (Auto) 0.1 TH/MM3 CBC Comment DIFF FINAL Differential Comment MDM Medical Decision Making Medical Screen Exam Complete: Yes Emergency Medical Condition: Yes Medical Record Reviewed: Yes Interpretation(s) Last Impressions Abdomen/Pelvis CT 05/21/17 0212 Signed Impressions: Service Date/Time: Sunday, May 21, 2017 02:49 - CONCLUSION: 1. No acute findings. Kirk Gunn MD Differential Diagnosis Acute pancreatitis, versus acid reflux, versus gastritis, versus peptic ulcer disease, versus tinny sound Narrative Course During the course of the patients emergency department visit, the patients history, examination, and differential diagnosis were reviewed with the patient. The patient had IV access obtained and blood work sent for analysis. The patient was placed on a wellness educator with oximetry and blood pressure monitoring. The patient was initially provided normal saline 1 L IV fluid bolus, Toradol 15 mg IV, Zofran 4 mg IV. The patients laboratory studies were reviewed and remarkable for a white count of 9.4, hemoglobin 10.7, platelets 310 with a normal differential. CMP is remarkable for glucose of 113, C-reactive protein 1.44, lipase 184. Urinalysis shows trace leukocyte esterase, RBCs 11, wbc's less than 1, many calcium oxalate crystals, rare bacteria, culture not indicated. From reviewing the electronic medical record the patient had a CT scan done without contrast, therefore a CT scan with IV contrast ordered to further evaluate. Radiology studies were reviewed and remarkable for a CT scan of the abdomen and pelvis that showed no acute abnormality. The patient will be discharged home with a prescription for proton pump inhibitor as the midepigastric abdominal pain and worsening reflux symptoms/ heartburn symptoms could be related to a peptic ulcer. The patient was instructed to follow-up with her primary care physician for reexamination in the next 3 days. The patient is resting comfortably and feels better, is alert and in no distress. The patients results and examination findings were discussed with the patient. The repeat examination is unremarkable and benign. The history, exam, diagnostic testing, and current condition do not suggest any significant pathology to warrant further testing, continued ED treatment, admission, or surgical evaluation at this point. The vital signs have been stable. The patient does not have uncontrollable pain, intractable vomiting, or other significant symptoms. The patient's condition is stable and appropriate for discharge. The patient will pursue further outpatient evaluation with a primary care physician or other designated or consulting physician as indicated in the discharge instructions. The patient expressed understanding and was agreeable with this plan. Diagnosis Primary Impression: Abdominal pain Qualified Codes: R10.13 - Epigastric pain Referrals: Primary Care Physician 3 days Patient Instructions: Abdominal Pain (ED), General Instructions Med/Other Pt SpecificInfo: Prescription(s) given Scripts Ondansetron Odt (Zofran Odt) 4 Mg Tab 4 MG SL Q6HR Y for Nausea/Vomiting, #7 TAB 0 Refills Prov: Gisel Rueda MD 05/21/17 Omeprazole (Omeprazole) 40 Mg Cap 40 MG PO DAILY, #30 CAP 0 Refills Prov: Gisel Rueda MD 05/21/17 Disposition: 01 DISCHARGE HOME Condition: Stable Gisel Rueda MD May 21, 2017 01:49
[2017-05-21] MEDS ORDERED: KETOROLAC TROMETHAMINE 30 MG/ML (IVP) VIAL IV PUSH ONE (02:15)
[2017-05-21] MEDS ORDERED: IOHEXOL 350 MG/ML 10 ML VIAL (for RAD DIAG) IVCONTRAST ONE (02:50)
[2017-05-21 02:56] LABS: AUTOMATED NEUTROPHIL # 5.5 TH/MM3 (1.8-7.7); BASOPHIL # 0.1 TH/MM3 (0-0.2); BASOPHIL % 0.7 % (0.0-2.0); EOSINOPHIL % 0.5 % (0.0-4.0); HEMATOCRIT 32.7 % (35.0-46.0); HEMO FLAGS DIFF FINAL; LYMPH % 34.5 % (9.0-44.0); LYMPHOCYTE # 3.3 TH/MM3 (1.0-4.8); MEAN CELL VOLUME 86.3 FL (80.0-100.0); MEAN CORPUSCULAR HEMOGLOBIN 28.1 PG (27.0-34.0); MEAN CORPUSCULAR HGB CONC 32.6 % (32.0-36.0); MONO % 6.6 % (0.0-8.0); NEUT % 57.7 % (16.0-70.0); PLATELET COUNT 310 TH/MM3 (150-450); RED BLOOD COUNT 3.79 MIL/MM3 (4.00-5.30); RED CELL DISTRIBUTION WIDTH 13.5 % (11.6-17.2); WHITE BLOOD COUNT 9.4 TH/MM3 (4.0-11.0)
--- NOTE | 2017-05-21 03:17 | RADRPT ---
EXAM DATE/TIME: 05/21/2017 02:49 [facility] COMPARISON: No previous studies available for comparison. INDICATIONS : Left upper quadrant pain. IV CONTRAST: 85 cc Omnipaque 350 (iohexol) IV ORAL CONTRAST: No oral contrast ingested. RADIATION DOSE: 23.23 CTDIvol (mGy) ; Patient body habitus MEDICAL HISTORY : None SURGICAL HISTORY : section. ENCOUNTER: Initial ACUITY: 1 week PAIN SCALE: 5/10 LOCATION: Left TECHNIQUE: Volumetric scanning of the abdomen and pelvis was performed. Using automated exposure control and ad justment of the mA and/or kV according to patient size, radiation dose was kept as low as reasonably achievable to obtain optimal diagnostic quality images. DICOM format image data is available electro nically for review and comparison. FINDINGS: LOWER LUNGS: The visualized lower lungs are clear. LIVER: Homogeneous density without lesion. There is no dilation of the biliary tree. No calcified gallston es. SPLEEN: Normal size without lesion. PANCREAS: Within normal limits. KIDNEYS: Normal in size and shape. There is no mass, stone or hydronephrosis. ADRENAL GLANDS: Within normal limits. VASCULAR: There is no aortic aneurysm. BOWEL/MESENTERY: The stomach, small bowel, and colon demonstrate no acute abnormality. There is no free intraperitone al air or fluid. ABDOMINAL WALL: Within normal limits. RETROPERITONEUM: There is no lymphadenopathy. BLADDER: No wall thickening or mass. REPRODUCTIVE: Within normal limits. INGUINAL: There is no lymphadenopathy or hernia. MUSCULOSKELETAL: Within normal limits for patient age. CONCLUSION: 1. No acute findings. Kirk Gunn MD on May 21, 2017 at 3:12 Board Certified Radiologist. This report was verified electronically.
[2017-05-21 03:44] VITALS: RESP 18
[2017-05-21] MEDS ORDERED: OMEP40CA2 PO (04:35)
[2017-05-21] MEDS ORDERED: ZOFR4TAB3 SL (04:35)
== END 2017-05-21 04:52 | disposition home or self-care (01) ==
LOC: NEPE 22:56
DX: R10.13 Epigastric pain (principal)
CPT/HCPCS: 74177; 80053; 81001; 83690; 84703; 85025; 86140; 96361; 96374; 96375; 99285; J1885; J2405; J7030; Q9967

== ENCOUNTER 2017-09-08 22:27 | Emergency (ER) | payer MEDICAID ==
[~2017-09-08] VITALS: Ht 162.6 cm; Wt 118.2 kg
[~2017-09-08 22:27] MED LIST changes: +OMEP40CA2 PO; -PERC5TAB12 PO; -TAMS5CAP PO; +ZOFR4TAB3 SL
[2017-09-08 22:30] VITALS: BP 135/71; PULSE 65; RESP 16; TEMP 98.2; O2SAT 100
--- NOTE | 2017-09-08 22:52 | RADRPT ---
EXAM DATE/TIME: 09/08/2017 22:42 [facility] COMPARISON: No previous studies available for comparison. INDICATIONS : Chest pain MEDICAL HISTORY : None. SURGICAL HISTORY : section. ENCOUNTER: Initial ACUITY: 2 days PAIN SCORE: 7/10 LOCATION: Bilateral chest FINDINGS: PA and lateral views of the chest demonstrate the lungs to be symmetrically aerated without evidence of mass, infiltrate or effusion. The cardiomediastinal contours are unremarkable. Osseous structure s are intact. CONCLUSION: No acute disease. Alex Lam Jr., MD on September 08, 2017 at 22:49 Board Certified Radiologist. This report was verified electronically.
[2017-09-08] MEDS ORDERED: KETOROLAC TROMETHAMINE 60 MG/2 ML (IM) VIAL IM ONE (23:30)
--- NOTE | 2017-09-08 23:57 | PD ---
HPI Chief Complaint: Chest Pain Time Seen by Provider: 23:21 Travel History International Travel<30 days: No Contact w/Intl Traveler<30days: No Traveled to known affect area: No History of Present Illness HPI The patient is a 27 year old female who presents to the [facility] emergency department with a history of left upper back pain that began 2 days ago. She reports that it radiates into her chest. She reports that the pain it is worse with movement. She denies any trauma or injury. She reports that she does regularly do heavy lifting at work in exercises regularly. On review of systems otherwise she denies having any recent fevers, cough, congestion, neck pain, chest pain, shortness of breath, abdominal pain, vomiting, diarrhea, urinary symptoms, or neurologic symptoms. She denies having any lower extremity edema, calf pain. She denies having any prior history of myocardial infarction failure, DVT, or PE. LMP: last week. PFSH Past Medical History Narrative Medical The patient's past medical history significant for GERD. Hx Anticoagulant Therapy: No Cardiovascular Problems: No Chemotherapy: No Cerebrovascular Accident: No Diabetes: No Diminished Hearing: No Respiratory: No Immunizations Current: Yes ?: Not LMP: 09/01/2017 : 2 Para: 2 Past Surgical History Narrative Surgical The patient's past surgical history significant for 2 c-sections. Section: Yes (X2) Gynecologic Surgery: Yes (C-SEC X 2) Hysterectomy: No Social History Alcohol Use: No Tobacco Use: No Substance Use: No Allergies-Medications (Allergen,Severity, Reaction): Coded Allergies: No Known Allergies (Verified , 05/21/17) Reported Meds & Prescriptions Reported Meds & Active Scripts Active Flexeril (Cyclobenzaprine HCl) 5 Mg Tab 5 Mg PO TID PRN Zofran Odt (Ondansetron Odt) 4 Mg Tab 4 Mg SL Q6HR PRN Omeprazole 40 Mg Cap 40 Mg PO DAILY Review of Systems Except as stated in HPI: all other systems reviewed are Neg General / Constitutional: No: Fever Eyes: No: Visual changes HENT: No: Headaches Cardiovascular: Positive: Chest Pain or Discomfort Respiratory: No: Shortness of Breath Gastrointestinal: No: Abdominal Pain Genitourinary: No: Dysuria Musculoskeletal: Positive: Myalgias, No: Pain Skin: No Rash Neurologic: No: Weakness Psychiatric: No: Depression Endocrine: No: Polydipsia Hematologic/Lymphatic: No: Easy Bruising Physical Exam Narrative General: The patient is a well-developed well-nourished female in no acute distress. Head and Neck exam: Head is normocephalic atraumatic. Eyes: EOMI, pupils are equal round and reactive to light. Nose: Midline septum with pink mucous membranes Mouth: Dentition unremarkable. Moist mucus membranes. Posterior oropharynx is not erythematous. No tonsillar hypertrophy. Uvula midline. Airway patent. Neck: No palpable lymphadenopathy. No nuchal rigidity. No thyromegaly. Cardiovascular: Regular rate and rhythm without murmurs, gallops, or rubs. No pulse deficit to the extremities on simultaneous auscultation and palpation of her radial artery. Lungs: Clear to auscultation bilaterally. No wheezes, rhonchi, or rales. Abdomen: Soft, without tenderness to palpation in all 4 quadrants of the abdomen. No guarding, rebound, or rigidity. Normal bowel sounds are audible. No tenderness on palpation of McBurney's point. Extremities: No clubbing, cyanosis, or edema. 2+ pulses in all 4 extremities. No calf tenderness on palpation. Negative Homans sign. No palpable cords. Back: No spinous process tenderness to palpation. No costovertebral angle tenderness to palpation. The patient reports having posterior back tenderness on palpation underneath the scapula on the left side. There is no erythema or ecchymosis. No step-off or crepitus. No flail segment. Neurologic Exam: Grossly nonfocal. Skin Exam: No rash noted. Intact skin that is warm and dry. Data Data Last Documented VS Vital Signs Date Time Temp Pulse Resp B/P (MAP) Pulse Ox O2 Delivery O2 Flow Rate FiO2 09/09/17 01:20 09/08/17 22:30 98.2 65 16 100 Orders Orders Electrocardiogram (09/08/17 ) Chest, Pa & Lat (09/08/17 ) Ketorolac Inj (Toradol Inj) (09/08/17 23:30) Ed Discharge Order (09/09/17 01:05) MDM Medical Decision Making Medical Screen Exam Complete: Yes Emergency Medical Condition: Yes Medical Record Reviewed: Yes Interpretation(s) Last 24 hours Impressions Chest X-Ray 09/08/17 0000 Signed Impressions: Service Date/Time: Friday, September 08, 2017 22:42 - CONCLUSION: No acute disease. Alex Lam Jr., MD Differential Diagnosis Musculoskeletal strain, versus acute coronary syndrome, versus costochondritis, versus pleurisy, versus pneumonia, versus pneumothorax Narrative Course During the course of the patients emergency department visit, the patients history, examination, and differential diagnosis were reviewed with the patient. The patient was placed on a cardiac care nurse with oximetry and frequent blood pressure monitoring. The patient had a chest x-ray ordered, EKG ordered. The patient's ECG reveals a sinus rhythm with a sinus arrhythmia heart rate is 67, no acute ST segment elevation or depression, QRS duration is 76 ms, QTC 367 ms, T waves are inverted in V1. The patient was initially provided Toradol 30 mg IM. Radiology studies were reviewed and remarkable for a chest x-ray that shows no acute cardiopulmonary disease. The patient's history and examination are consistent with a musculoskeletal strain. The patient is instructed to avoid heavy lifting and exercise that exacerbates the pain. She is given a prescription for a muscle relaxer. The patient is resting comfortably and feels better, is alert and in no distress. The patients results and examination findings were discussed with the patient. The repeat examination is unremarkable and benign. The history, exam, diagnostic testing, and current condition do not suggest any significant pathology to warrant further testing, continued ED treatment, admission, or surgical evaluation at this point. The vital signs have been stable. The patient does not have uncontrollable pain, intractable vomiting, or other significant symptoms. The patient's condition is stable and appropriate for discharge. The patient will pursue further outpatient evaluation with a primary care physician or other designated or consulting physician as indicated in the discharge instructions. The patient expressed understanding and was agreeable with this plan. Diagnosis Primary Impression: Muscle strain Referrals: Primary Care Physician 1 week Patient Instructions: General Instructions, Muscle Strain (ED) Med/Other Pt SpecificInfo: Prescription(s) given Scripts Cyclobenzaprine (Flexeril) 5 Mg Tab 5 MG PO TID Y for SPASM, #12 TAB 0 Refills Prov: Gisel Rueda MD 09/09/17 Disposition: 01 DISCHARGE HOME Condition: Stable Gisel Rueda MD Sep 08, 2017 23:57
[2017-09-09] MEDS ORDERED: CYCL5TAB PO (01:03)
--- NOTE | 2017-09-09 16:33 | EKG ---
Date Performed: 09/08/2017 Time Performed: 23:08:41 PTAGE: 27 years EKG: Sinus rhythm WITH SINUS ARRHYTHMIA Since previous tracing, no significant change noted NORMAL ECG PREVIOUS TRACING : 08/27/2016 13.59.02 DOCTOR: Oxana June Interpretating Date/Time 09/09/2017 16:31:29
== END 2017-09-09 01:23 | disposition home or self-care (01) ==
LOC: NEPC 22:27
DX: S29.012A Strain of muscle and tendon of back wall of thorax, initial encounter (principal); S29.011A Strain of muscle and tendon of front wall of thorax, initial encounter; R07.89 Other chest pain; K21.9 Gastro-esophageal reflux disease without esophagitis; X58.XXXA Exposure to other specified factors, initial encounter
CPT/HCPCS: 71046; 93005; 96372; 99284; J1885

== ENCOUNTER 2017-11-21 18:29 | Emergency (ER) | payer MEDICAID ==
[~2017-11-21] VITALS: Ht 162.6 cm; Wt 113.5 kg
[~2017-11-21 18:29] MED LIST changes: +CYCL5TAB PO
[2017-11-21 18:33] VITALS: BP 161/80; PULSE 87; RESP 16; TEMP 97.6; O2SAT 100
[2017-11-21 20:01] VITALS: BP 136/77; PULSE 68; RESP 18; O2SAT 99
--- NOTE | 2017-11-21 20:02 | PD ---
HPI Chief Complaint: Flank/Kidney Pain Time Seen by Provider: 19:49 Travel History International Travel<30 days: No Contact w/Intl Traveler<30days: No Traveled to known affect area: No History of Present Illness HPI 27-year-old female presents emergency department for evaluation of left flank pain. Patient states this is been going on for several weeks. She has been seen at other hospitals for this. She has been told that she has kidney stones inside the kidney but are not moving and should not be causing her pain. She states over the last week the pain has began to radiate to her left abdomen. She denies any urinary symptoms. No hematuria. Mild nausea without vomiting. Pain is intermittently sharp. Denies any chance of . No vaginal discharge or bleeding. No abdominal surgeries except for a . No other symptoms to report. PFSH Past Medical History Hx Anticoagulant Therapy: No Cardiovascular Problems: No Chemotherapy: No Cerebrovascular Accident: No Diabetes: No Diminished Hearing: No Genitourinary: Yes (KIDNEY STONES) Respiratory: No Immunizations Current: Yes ?: Not LMP: OCTOBER 2017 : 2 Para: 2 Past Surgical History Section: Yes (X2) Gynecologic Surgery: Yes (C-SEC X 2) Hysterectomy: No Social History Alcohol Use: Yes Tobacco Use: No Substance Use: No Allergies-Medications (Allergen,Severity, Reaction): Coded Allergies: No Known Allergies (Verified Adverse Reaction, Unknown, 11/21/17) Reported Meds & Prescriptions Reported Meds & Active Scripts Active No Active Prescriptions or Reported Medications Review of Systems Except as stated in HPI: all other systems reviewed are Neg Physical Exam Narrative GENERAL: Obese female patient, no acute distress. SKIN: Focused skin assessment warm/dry. HEAD: Atraumatic. Normocephalic. EYES: Pupils equal and round. No scleral icterus. No injection or drainage. ENT: No nasal bleeding or discharge. Mucous membranes pink and moist. NECK: Trachea midline. No JVD. CARDIOVASCULAR: Regular rate and rhythm. No murmur appreciated. RESPIRATORY: No accessory muscle use. Clear to auscultation. Breath sounds equal bilaterally. GASTROINTESTINAL: Abdomen soft, non-tender, nondistended. Hepatic and splenic margins not palpable. No guarding. No rebound tenderness. MUSCULOSKELETAL: No obvious deformities. No clubbing. No cyanosis. No edema. NEUROLOGICAL: Awake and alert. No obvious cranial nerve deficits. Motor grossly within normal limits. Normal speech. PSYCHIATRIC: Appropriate mood and affect; insight and judgment normal. Data Data Last Documented VS Vital Signs Date Time Temp Pulse Resp B/P (MAP) Pulse Ox O2 Delivery O2 Flow Rate FiO2 11/21/17 22:26 11/21/17 21:46 62 18 100 Room Air 11/21/17 18:33 97.6 Orders Orders Urinalysis - C+S If Indicated (11/21/17 19:49) Complete Blood Count With Diff (11/21/17 20:01) Iv Access Insert/Monitor (11/21/17 20:01) Ecg Monitoring (11/21/17 20:01) Oximetry (11/21/17 20:01) Sodium Chloride 0.9% Flush (Ns Flush) (11/21/17 20:15) Ed Urine Pregnancytest Poc (11/21/17 20:01) Ketorolac Inj (Toradol Inj) (11/21/17 20:15) Sodium Chlor 0.9% 1000 Ml Inj (Ns 1000 M (11/21/17 20:15) Ct Abd/Pel W/O Iv Contrast (11/21/17 20:04) Ed Discharge Order (11/21/17 22:10) Acetaminophen (Tylenol) (11/21/17 22:15) Labs Laboratory Tests Test 11/21/17 19:50 11/21/17 20:35 Urine Color YELLOW Urine Turbidity CLEAR Urine pH 8.0 Urine Specific [place] 1.026 Urine Protein TRACE mg/dL Urine Glucose (UA) NEG mg/dL Urine Ketones NEG mg/dL Urine Occult Blood NEG Urine Nitrite NEG Urine Bilirubin NEG Urine Urobilinogen 4.0 MG/DL Urine Leukocyte Esterase NEG Urine WBC 1 /hpf Urine Squamous Epithelial Cells 3 /hpf Urine Mucus FEW /lpf Microscopic Urinalysis Comment CULT NOT INDICATED White Blood Count 6.9 TH/MM3 Red Blood Count 3.85 MIL/MM3 Hemoglobin 10.9 GM/DL Hematocrit 33.1 % Mean Corpuscular Volume 86.1 FL Mean Corpuscular Hemoglobin 28.4 PG Mean Corpuscular Hemoglobin Concent 33.0 % Red Cell Distribution Width 13.7 % Platelet Count 363 TH/MM3 Mean Platelet Volume 8.0 FL Neutrophils (%) (Auto) 55.5 % Lymphocytes (%) (Auto) 32.2 % Monocytes (%) (Auto) 10.6 % Eosinophils (%) (Auto) 1.0 % Basophils (%) (Auto) 0.7 % Neutrophils # (Auto) 3.9 TH/MM3 Lymphocytes # (Auto) 2.2 TH/MM3 Monocytes # (Auto) 0.7 TH/MM3 Eosinophils # (Auto) 0.1 TH/MM3 Basophils # (Auto) 0.1 TH/MM3 CBC Comment DIFF FINAL Differential Comment [facility] Medical Decision Making Medical Screen Exam Complete: Yes Emergency Medical Condition: Yes Medical Record Reviewed: Yes Differential Diagnosis Muscle strain versus flank pain versus renal colic versus pancreatitis versus kidney stone versus pyelonephritis Narrative Course 27-year-old female presents emergency department for evaluation of left flank pain radiating to her abdomen. Patient appears well and without distress. Physical exam is unremarkable. Laboratory Tests Test 11/21/17 19:50 11/21/17 20:35 Urine Color YELLOW Urine Turbidity CLEAR Urine pH 8.0 Urine Specific [place] 1.026 Urine Protein TRACE mg/dL Urine Glucose (UA) NEG mg/dL Urine Ketones NEG mg/dL Urine Occult Blood NEG Urine Nitrite NEG Urine Bilirubin NEG Urine Urobilinogen 4.0 MG/DL Urine Leukocyte Esterase NEG Urine WBC 1 /hpf Urine Squamous Epithelial Cells 3 /hpf Urine Mucus FEW /lpf Microscopic Urinalysis Comment CULT NOT INDICATED White Blood Count 6.9 TH/MM3 Red Blood Count 3.85 MIL/MM3 Hemoglobin 10.9 GM/DL Hematocrit 33.1 % Mean Corpuscular Volume 86.1 FL Mean Corpuscular Hemoglobin 28.4 PG Mean Corpuscular Hemoglobin Concent 33.0 % Red Cell Distribution Width 13.7 % Platelet Count 363 TH/MM3 Mean Platelet Volume 8.0 FL Neutrophils (%) (Auto) 55.5 % Lymphocytes (%) (Auto) 32.2 % Monocytes (%) (Auto) 10.6 % Eosinophils (%) (Auto) 1.0 % Basophils (%) (Auto) 0.7 % Neutrophils # (Auto) 3.9 TH/MM3 Lymphocytes # (Auto) 2.2 TH/MM3 Monocytes # (Auto) 0.7 TH/MM3 Eosinophils # (Auto) 0.1 TH/MM3 Basophils # (Auto) 0.1 TH/MM3 CBC Comment DIFF FINAL Differential Comment Last Impressions Abdomen/Pelvis CT 11/21/172003 Signed Impressions: Service Date/Time: Tuesday, November 21, 2017 21:04 - CONCLUSION: No evidence of kidney stones or hydronephrosis Martin Singh MD I reviewed the findings with my attending physician. I discussed with the patient. Patient will be discharged home with pain control. She agrees to return immediately with any acute worsening of symptoms. Diagnosis Primary Impression: Left flank pain Referrals: Primary Care Physician Patient Instructions: Flank Pain (ED), General Instructions Departure Forms: Tests/Procedures, Work Release Enter return to work date: Nov 24, 2017 Additional Instructions: Maintain adequate oral hydration Follow-up with a primary care provider Return immediately with acute worsening symptoms Med/Other Pt SpecificInfo: No Change to Meds Scripts No Active Prescriptions or Reported Meds Disposition: 01 DISCHARGE HOME Condition: Stable Kait Fernandes Nov 21, 2017 20:02
[2017-11-21] MEDS ORDERED: KETOROLAC TROMETHAMINE 30 MG/ML (IVP) VIAL IV PUSH ONE (20:15)
[2017-11-21] MEDS ORDERED: SODIUM CHLORIDE 0.9% FLUSH 10 ML FLUSH IV FLUSH PRN (20:15)
[2017-11-21] MEDS ORDERED: SODIUM CHLOR 0.9% 1000 ML INJ 1,000 ML IV ONE (20:15)
[2017-11-21 20:16] VITALS: RESP 18; O2SAT 99
[2017-11-21 21:08] LABS: BILIRUBIN, URINE NEG (NEG); BLOOD, URINE NEG (NEG); GLUCOSE,URINE NEG (NEG); KETONE, URINE NEG (NEG); MUCUS URINE FEW /lpf (OCC); NITRITE,URINE NEG (NEG); SQUAMOUS EPITHELIAL CELL URINE 3 /hpf (0-5); URINE COLOR YELLOW (YELLW/STRAW); URINE LEUKOCYTE ESTERASE NEG (NEG)
[2017-11-21 21:10] LABS: AUTOMATED NEUTROPHIL # 3.9 TH/MM3 (1.8-7.7); BASOPHIL # 0.1 TH/MM3 (0-0.2); BASOPHIL % 0.7 % (0.0-2.0); EOSINOPHIL # 0.1 TH/MM3 (0-0.4); HEMATOCRIT 33.1 % (35.0-46.0); HEMOGLOBIN 10.9 GM/DL (11.6-15.3); LYMPH % 32.2 % (9.0-44.0); LYMPHOCYTE # 2.2 TH/MM3 (1.0-4.8); MEAN CELL VOLUME 86.1 FL (80.0-100.0); MEAN CORPUSCULAR HEMOGLOBIN 28.4 PG (27.0-34.0); MONO % 10.6 % (0.0-8.0); MONOCYTE # 0.7 TH/MM3 (0-0.9); NEUT % 55.5 % (16.0-70.0); PLATELET COUNT 363 TH/MM3 (150-450); RED BLOOD COUNT 3.85 MIL/MM3 (4.00-5.30); RED CELL DISTRIBUTION WIDTH 13.7 % (11.6-17.2); WHITE BLOOD COUNT 6.9 TH/MM3 (4.0-11.0)
--- NOTE | 2017-11-21 21:20 | RADRPT ---
EXAM DATE/TIME: 11/21/2017 21:04 [facility] COMPARISON: CT ABDOMEN & PELVIS W CONTRAST, May 21, 2017, 2:49. INDICATIONS : Left flank pain. ORAL CONTRAST: No oral contrast ingested. RADIATION DOSE: 15.66 CTDIvol (mGy) MEDICAL HISTORY : Renal calculi. SURGICAL HISTORY : section. ENCOUNTER: Initial ACUITY: 1 week PAIN SCALE: 9/10 LOCATION: Left flank TECHNIQUE: Volumetric scanning of the abdomen and pelvis was performed. Using automated exposure control and ad justment of the mA and/or kV according to patient size, radiation dose was kept as low as reasonably achievable to obtain optimal diagnostic quality images. DICOM format image data is available electro nically for review and comparison. FINDINGS: LOWER LUNGS: The visualized lower lungs are clear. LIVER: Visualized portions are grossly unremarkable. SPLEEN: Visualized portions are grossly unremarkable. PANCREAS: Within normal limits. KIDNEYS: Normal in size and shape. There is no mass, stone, or hydronephrosis. ADRENAL GLANDS: Within normal limits. VASCULAR: There is no aortic aneurysm. BOWEL/MESENTERY: The stomach, small bowel, and colon demonstrate no acute abnormality. There is no free intraperitone al air or fluid. ABDOMINAL WALL: Within normal limits. RETROPERITONEUM: There is no lymphadenopathy. BLADDER: No wall thickening or mass. REPRODUCTIVE: Within normal limits. INGUINAL: There is no lymphadenopathy or hernia. MUSCULOSKELETAL: Within normal limits for patient age. CONCLUSION: No evidence of kidney stones or hydronephrosis Martin Singh MD on November 21, 2017 at 21:16 Board Certified Radiologist. This report was verified electronically.
[2017-11-21 21:46] VITALS: BP 128/65; PULSE 62; RESP 18; O2SAT 100
[2017-11-21] MEDS ORDERED: ACETAMINOPHEN 325 MG TAB PO ONE (22:15)
== END 2017-11-21 22:35 | disposition home or self-care (01) ==
LOC: NEPE 18:29
DX: R10.9 Unspecified abdominal pain (principal); Z87.442 Personal history of urinary calculi
CPT/HCPCS: 74176; 81001; 84703; 85025; 96361; 96374; 99284; J1885; J7030; 80053

== ENCOUNTER 2018-01-02 10:21 | Emergency (ER) | payer MEDICAID ==
[~2018-01-02] VITALS: Ht 162.6 cm; Wt 125.0 kg
[2018-01-02 10:25] VITALS: BP 145/67; PULSE 99; RESP 20; TEMP 98.5; O2SAT 98
[2018-01-02] MEDS ORDERED: AMOX875T PO (10:45)
[2018-01-02] MEDS ORDERED: FLUT1SPR5 EACH NARE (10:45)
--- NOTE | 2018-01-02 10:57 | PD ---
HPI Chief Complaint: Cold / Flu Symptoms Time Seen by Provider: 10:36 Travel History International Travel<30 days: No Contact w/Intl Traveler<30days: No Traveled to known affect area: No History of Present Illness HPI 27-year-old female presents emergency department with several day history of upper respiratory symptoms. Currently patient has headache, congestion, sore throat, cough, nausea and vomiting. She has felt febrile but has not noted a fever at home. She denies significant chest congestion or wheezing. She has generalized body aches and pains. Patient denies abdominal pain or diarrhea. Most of her symptoms are in the upper respiratory region. 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 Sore throat is worse when she lays down as is her cough. Headache is worse today at 8 out of 10. She has no known drug allergies. PFSH Past Medical History Hx Anticoagulant Therapy: No Cardiovascular Problems: No Chemotherapy: No Cerebrovascular Accident: No Diabetes: No Diminished Hearing: No Genitourinary: Yes (KIDNEY STONES) Respiratory: No Immunizations Current: Yes Tetanus Vaccination: Unknown Influenza Vaccination: No ?: Not LMP: now : 2 Para: 2 Past Surgical History Section: Yes (X2) Gynecologic Surgery: Yes (C-SEC X 2) Hysterectomy: No Social History Alcohol Use: No Tobacco Use: No Substance Use: No Allergies-Medications (Allergen,Severity, Reaction): Coded Allergies: No Known Allergies (Verified Adverse Reaction, Unknown, 01/02/18) Reported Meds & Prescriptions Reported Meds & Active Scripts Active Flonase Nasal [place] (Fluticasone Nasal [place]) 50 Mcg/Act [place] 100 Mcg EACH NARE BID Amoxicillin 875 Mg Tab 875 Mg PO BID 10 Days Review of Systems Except as stated in HPI: all other systems reviewed are Neg General / Constitutional: Positive: Chills, No: Fever Eyes: No: Visual changes HENT: Positive: Headaches, Sore Throat, Rhinitis, Rhinorrhea, Congestion, No: Vertigo, Lightheadedness, Nosebleed, Neck Stiffness, Neck Pain, Dental Difficulties, Ear Discharge, Earache Cardiovascular: No: Chest Pain or Discomfort Respiratory: Positive: Cough, No: Shortness of Breath, Wheezing Gastrointestinal: Positive: Nausea, Vomiting, No: Abdominal Pain Genitourinary: No: Dysuria Musculoskeletal: No: Pain Skin: No Rash Neurologic: No: Weakness Psychiatric: No: Depression Endocrine: No: Polydipsia Hematologic/Lymphatic: No: Easy Bruising Physical Exam Narrative GENERAL: Patient appears ill but not septic. SKIN: Warm and dry. Normal color. Normal turgor. No diaphoresis. HEAD: Atraumatic. Normocephalic. Patient has moderate sinus tenderness to palpation and percussion bilaterally in both frontal and maxillary sinuses. EYES: Pupils equal and round. No scleral icterus. No injection or drainage. ENT: No nasal bleeding or discharge. Mucous membranes pink and moist. Posterior pharynx is somewhat injected with cobblestoning noted as well as postnasal drip in the posterior pharynx. Tonsils are somewhat enlarged without exudate. TMs are dull without erythema. Airway is patent. NECK: Trachea midline. Supple and nontender. No significant lymphadenopathy noted. CARDIOVASCULAR: Regular rate and rhythm. RESPIRATORY: No accessory muscle use. Clear to auscultation. Breath sounds equal bilaterally. GASTROINTESTINAL: Abdomen soft, non-tender, nondistended. Hepatic and splenic margins not palpable. MUSCULOSKELETAL: Extremities without clubbing, cyanosis, or edema. No obvious deformities. NEUROLOGICAL: Awake and alert. No obvious cranial nerve deficits. Motor grossly within normal limits. Five out of 5 muscle strength in the arms and legs. Normal speech. PSYCHIATRIC: Appropriate mood and affect; insight and judgment normal. Data Data Last Documented VS Vital Signs Date Time Temp Pulse Resp B/P (MAP) Pulse Ox O2 Delivery O2 Flow Rate FiO2 01/02/18 10:25 98.5 99 20 145/67 (93) 98 MDM Medical Decision Making Medical Screen Exam Complete: Yes Emergency Medical Condition: Yes Differential Diagnosis Upper respiratory infection. Sinusitis. Postnasal drip. Tonsillitis. Pharyngitis. Influenza per Narrative Course Patient will be treated with amoxicillin 875 twice daily 10 days. Patient also given Flonase nasal spray 2 sprays each nostril daily. Recommend patient take [id number] cough and cold medicine as needed. Patient is to rest and push fluids for the next 2 days. Patient to follow-up if symptoms do not improve or worsen as needed. Diagnosis Primary Impression: Acute non-recurrent pansinusitis Additional Impression: Postnasal drip Referrals: Primary Care Physician Patient Instructions: General Instructions, Rhinosinusitis (GEN) Departure Forms: Work Release Enter return to work date: January 05, 2018 Additional Instructions: Patient will be treated with amoxicillin 875 twice daily 10 days. Patient also given Flonase nasal spray 2 sprays each nostril daily. Recommend patient take [id number] cough and cold medicine as needed. Patient is to rest and push fluids for the next 2 days. Patient to follow-up if symptoms do not improve or worsen as needed. Med/Other Pt SpecificInfo: Prescription(s) given Scripts Fluticasone Nasal [place] (Flonase Nasal [place]) 50 Mcg/Act [place] 100 MCG EACH NARE BID for Allergies, #1 BOTTLE 0 Refills Prov: Barbie Barahona MD 01/02/18 Amoxicillin (Amoxicillin) 875 Mg Tab 875 MG PO BID for Infection for 10 Days, #20 TAB 0 Refills Prov: Barbie Barahona MD 01/02/18 Disposition: 01 DISCHARGE HOME Condition: Stable Dylan Natarajan January 02, 2018 10:57
[2018-01-02] MEDS ORDERED: IBUPROFEN 600 MG TAB PO ONE (11:00)
[2018-01-02] MEDS ORDERED: RESP: ALBUTEROL 2.5 MG/IPRATROPIUM 0.5 MG NEB (SCH) INH (11:15)
[2018-01-02] MEDS ORDERED: AZITHROMYCIN 250 MG TAB PO ONE (11:15)
[2018-01-02] MEDS ORDERED: predniSONE 20 MG TAB PO ONE (11:15)
== END 2018-01-02 11:10 | disposition home or self-care (01) ==
LOC: NEPD 10:21
DX: J01.40 Acute pansinusitis, unspecified (principal)
CPT/HCPCS: 99283